=== PATIENT | female | born 1965 | race Caucasian/White ===

== ENCOUNTER → 2017-03-21 | Outpatient (CLI) | payer OTHER ==
--- NOTE | 2017-03-21 13:11 | DIAGNOSTIC IMAGING REPORT ---
R SHOULDER MIN 2 VIEWS ROUTINE HISTORY: 51 years-old Female M25.511 Right shoulder [id number] acute right shoulder pain status post fall COMPARISON: None available TECHNIQUE: 3 views of the right shoulder FINDINGS: No acute fracture, dislocation or significant degenerative changes. Imaged soft tissues and right lung lei are clear. Remote appearing fracture involves the posterior lateral aspect of the right sixth rib. IMPRESSION: No acute bony abnormality. The above report was generated using voice recognition software. It may contain grammatical, syntax or spelling errors. Electronically signed by: Dimitris Toth M.D. 03/21/2017 1:10 PM Dictated Date/Time: 03/21/2017 1:09 PM
== END | disposition home or self-care (01) ==
LOC: C.RAD1850 12:52
PROVIDERS: ATTEND Nurse Practitioner
DX: M25.511 Pain in right shoulder (principal)

== ENCOUNTER → 2018-01-07 | Outpatient (CLI) | payer OTHER ==
[2018-01-07 18:11] LABS: BLOOD UREA NITROGEN 8 mg/dl (7-18); CALCIUM 8.2 mg/dl (8.5-10.1); CARBON DIOXIDE 29 mmol/L (21-32); CREATININE 0.65 mg/dl (0.60-1.20); GLUCOSE 89 mg/dl (70-99); POTASSIUM 2.5 mmol/L (3.5-5.1); SODIUM 140 mmol/L (136-145)
== END | disposition home or self-care (01) ==
LOC: C.LABBFT 11:42
PROVIDERS: ATTEND Physician Assistant Medical
DX: E87.6 Hypokalemia (principal)

== ENCOUNTER 2020-08-02 15:44 | Inpatient (IN) ==
[2020-08-02 16:21] LABS: Basophils # (auto) 0.06 K/uL (0-0.2); Basophils % (auto) 0.4 %; Eosinophils # (auto) 0.08 K/uL (0-0.5); Eosinophils % (auto) 0.5 %; Hematocrit (blood only) 46.4 % (37-47); Hemoglobin 16.6 g/dL (12.0-16.0); Immature Granulocytes # (auto) 0.06 K/uL (0.00-0.02); Immature Granulocytes % (auto) 0.4 %; Lymphocytes # (auto) 2.34 K/uL (1.2-3.4); Lymphocytes % (auto) 15.8 %; Mean Corpuscular Hemoglobin 36.1 pg (25-34); Mean Corpuscular Hgb Conc 35.8 g/dL (32-36); Mean Corpuscular Volume 100.9 fL (80-100); Mean Platelet Volume 9.5 fL (7.4-10.4); Monocytes % (auto) 11.5 %; Neutrophils # (auto) 10.59 K/uL (1.4-6.5); Neutrophils % (auto) 71.4 %; Platelet Count 201 K/uL (130-400); RDW Coefficient of Variation 15.1 % (11.5-14.5); White Blood Count 14.83 K/uL (4.8-10.8)
[2020-08-02 16:34] LABS: Appearance Urine Cloudy (Clear); Bacteria Urine Automated 1+ (Negative); Blood Urine Trace (Negative); Color Urine Orange; Epithelial Cell Urine Auto >30 /lpf (0-5); Glucose Urine UA Negative (Negative); Ketones Urine Negative (Negative); Leukocyte Esterase Urine 1+ (Negative); Nitrite Urine Positive (Negative); Protein Urine Trace (Negative); Specific Gravity Urine 1.017 (1.000-1.030); Urobilinogen Urine Positive (Negative)
[2020-08-02 16:35] LABS: Bilirubin Urine 3+ (Negative)
[2020-08-02 16:55] LABS: Albumin Globulin Ratio 0.6 (0.9-2); Albumin Level 2.5 gm/dl (3.4-5.0); BUN Creatinine Ratio 4.2 (10-20); Bilirubin,Total 7.1 mg/dl (0.2-1); Calcium 8.5 mg/dl (8.5-10.1); Creatinine Clr Calc Pharmacy 65.4 ml/min; Est GFR (Non-African American) 77.7; Globulin 3.9 gm/dl (2.5-4.0); Potassium 2.1 mmol/L (3.5-5.1); Total Protein 6.4 gm/dl (6.4-8.2)
[2020-08-02 16:59] LABS: C Reactive Protein 1.48 mg/dl (0-0.29)
[2020-08-02] MEDS ORDERED: OPTIRAY 320 100ml IV ONE (17:24)
--- NOTE | 2020-08-02 17:36 | Emergency Department Note ---
History of Present Illness General Chief complaint: Abdominal Pain Stated complaint: ABD PAIN Time Seen by Provider: 08/02/20 16:20 History of Present Illness Maximum Pain Intensity: 7 54-year-old female who presents to the emergency department with complaint of generalized lower abdominal pain, swelling and nausea that has been ongoing for the past 4 years, worse within the past 2 weeks. Patient does report occasional reflux, otherwise denies any other chest pain, shortness of breath or pain radiating into the back. She has not noticed any urinary symptoms, dark or bloody stools. The patient does admit to a remote history of alcohol abuse. Upon further questioning, the patient reports that she last had alcohol about 5 days ago. She denies any prior abdominal surgeries. The patient rates her discomfort a 7 out of 10. Home Medications Medication Instructions Recorded Confirmed Type albuterol sulfate 90 mcg/actuation 2 puff INHALATION Q4 PRN 12/22/18 08/02/20 History aerosol inhaler omeprazole 20 mg tablet,delayed 20 mg PO QAM 12/22/18 08/02/20 History release triamcinolone acetonide 0.5 % See Rx Instructions TOP .COMPLEX 12/22/18 08/02/20 History topical cream PRN B-complex with vitamin C 1 cap PO DAILY #30 cap 01/16/19 08/02/20 Rx cholecalciferol (vitamin D3) 50 2,000 units PO DAILY 04/07/19 08/02/20 History mcg (2,000 unit) capsule riboflavin (vitamin B2) 50 mg 50 mg PO DAILY 04/07/19 08/02/20 History tablet doxycycline hyclate 100 mg tablet 100 mg PO BID #20 tab 05/28/19 08/02/20 Rx lorazepam 0.5 mg tablet 0.5 mg PO DAILY PRN #30 tab 02/26/20 08/02/20 Rx duloxetine 20 mg capsule,delayed 40 mg PO DAILY #60 cap 03/02/20 08/02/20 Rx release folic acid 1 mg PO DAILY 08/02/20 08/02/20 History gabapentin 300 mg PO TID 08/02/20 08/02/20 History potassium chloride 20 meq PO DAILY 08/02/20 08/02/20 History Allergies Allergy/AdvReac Type Severity Reaction Status Date / Time No Known Allergies Allergy Verified 08/02/20 17:24 Past Med/Surg History Medical History Anxiety Depression GERD (gastroesophageal reflux disease) Hypokalemia Mood swings Neuropathy Riboflavin (vitamin B2) deficiency Thiamine deficiency Tobacco abuse Vitamin D deficiency Surgical History History of tooth extraction wisdom teeth Family History Mother Family history of diabetes mellitus Thyroid disease Hypertension Cardiac disorder Father Myocardial infarction Stroke Grandmother Lung cancer Social History Smoking Status: Current every day smoker Tobacco Type: Cigarettes Age Started Using Tobacco: 27; packs per day: 0.5; Cigarettes Per Day: <10; Second Hand Exposure: Yes (father smoked); Hx Alcohol Use: Yes Alcohol type: beer, wine and hard liquor Hx Substance Use: No Preferred Language: Greek Communication Ability: Effective Supervisor [employer] Required: No Beliefs That Will Affect Care: None Current Living Situation: Spouse Feels Safe at Home: Yes Assistive Devices: Denture - Upper, Denture - Lower and Glasses Review of Systems 10 system review was performed and was negative except for pertinent positives and negatives as indicated in history of present illness Physical Exam Vital Signs Vital Signs - 24 hr 08/02/20 15:53 08/02/20 17:37 08/02/20 19:25 Temperature 37.2 C Temperature Source Temporal Artery Scan Pulse Rate 71 Pulse Rate [Finger] 70 73 Pulse Rhythm [Finger] Regular Regular Pulse Strength [Finger] Normal Normal Respiratory Rate 18 19 18 Respiratory Effort / Characteristics Non-Labored Spontaneous Respiratory Depth Normal Normal Respiratory Pattern Regular Blood Pressure 133/81 Blood Pressure [Right Arm] 110/62 135/81 Blood Pressure Mean 98 Blood Pressure Mean [Right Arm] 78 99 Pulse Oximetry 95 95 98 Oxygen Delivery Method Room Air Room Air Room Air Sepsis Recent Fever Within 48 Hours No Sepsis New/Unexplained Change in Mental Status No Sepsis Action Taken by Nursing No Action Required CONSTITUTIONAL: Healthy and well nourished. Patient does not appear in any acute distress on exam. HEENT: Normocephalic, atraumatic. Pupils equal, round and reactive. No scleral icterus or conjunctival injection/pallor. NECK: Full active range of motion without discomfort. LYMPHATICS: No cervical chain adenopathy. RESPIRATORY: Clear to auscultation bilaterally with no wheezing, crackles, rhonchi or stridor. CARDIOVASCULAR: Regular rate and rhythm with no murmurs, rubs or gallops. GASTROINTESTINAL: Bowel sounds present in all quadrants. Patient has generalized abdominal distention with a fluid wave/ballottement. No obvious hepatosplenomegaly on exam. Negative McBurney's point tenderness. No left lower quadrant tenderness to palpation. Negative CVA tenderness. MUSCULOSKELETAL: Full range of motion of all joints without discomfort. INTEGUMENTARY: No rash or other significant dermatologic conditions noted. HEMATOLOGIC: No ecchymosis or petechiae. PSYCHIATRIC: Positive affect. NEUROLOGIC: No focal neurologic deficits noted. Course Course Patient history and physical exam were performed. Nurses notes were reviewed. Vital signs were reviewed and were normal. The patient refused any analgesics on initial exam. IV access was established, and labs were drawn and reviewed, showing profound hypokalemia with a potassium of 2.1; it is noted that the patient has had prior hypokalemia, and is currently on potassium supplementation. Patient also has mild hyponatremia and elevated glucose of 140. Patient has elevated LFTs, total bilirubin and alkaline phosphatase, which do appear to be new except for history of elevated alkaline phosphatase. Urinalysis shows hematuria, nitrites, bilirubin, urobilinogen, leukocyte esterase and bacteria; urine sample was not clean-catch. Coagulation studies, magnesium and phosphorus are relatively normal. CT with IV contrast of the abdomen and pelvis shows a moderate amount of ascites as well as moderate body wall edema and trace pleural effusions. Radiologist also question subtle nodularity along the liver contour which could represent an early cirrhosis, which is in agreement with laboratory studies. Findings were discussed with the patient, as well as Dr. Aguilar, ED attending physician, who agrees with hospitalist consultation for admission. Patient was in agreement to admission as well. The case was then further discussed with Dr. Oakes, [facility] Hospitalist. Please see the hospitalist service dictations for further treatment and final disposition. I did place an order for potassium chloride 40 mEq orally, as well as a K rider 10 mEq while in the emergency department. Administered Medications Gabapentin (Gabapentin 300 Mg Cap) 300 mg PO TID DEYA Stop: 09/01/20 20:59 Last Admin: 08/02/20 21:42 Dose: 300 mg Documented by: [id number] Miscellaneous (Remove Nicoderm Patch) 1 ea N/A DAILY@[id number] [facility] Stop: 09/02/20 08:58 Last Admin: 08/02/20 21:56 Dose: Not Given Documented by: [id number] Nicotine (Nicotine 21 Mg/24 Hr Tdsy) 21 mg TD QAM [facility] Stop: 09/01/20 20:50 Last Admin: 08/02/20 21:42 Dose: Not Given Documented by: [id number] Discontinued Medications Potassium Chloride (K Brayan / Wtr) 10 meq in 100 mls @ 100 mls/hr IV ONE ONE Stop: 08/02/20 19:06 Last Infusion: 08/02/20 19:26 Dose: 0 mls/hr Documented by: [id number] Admin: 08/02/20 18:19 Dose: 100 mls/hr Documented by: [id number] Ibuprofen (Ibuprofen 200 Mg Tab) 400 mg PO NOW STA Stop: 08/02/20 22:15 Last Admin: 08/02/20 22:38 Dose: 400 mg Documented by: [id number] Ioversol (Ioversol 100ml) 94 ml IV ONCE ONE Stop: 08/02/20 17:25 Last Admin: 08/02/20 17:24 Dose: 94 ml Documented by: [id number] Potassium Chloride (Potassium Chloride Crtab 20 Meq Tabcr) 40 meq PO NOW STA Stop: 08/02/20 18:08 Last Admin: 08/02/20 18:19 Dose: 40 meq Documented by: [id number] Spironolactone (Spironolactone 25 Mg Tab) 25 mg PO NOW STA Stop: 08/02/20 19:55 Last Admin: 08/02/20 20:30 Dose: 25 mg Documented by: [id number] Medical Decision Making Medical Records Attestation: I reviewed the patient's medical records. Home Medications Current Medication List: was personally reviewed by me Laboratory Data Attestation: I reviewed the patient's lab results. Result diagrams: 08/02/20 16:07 08/02/20 16:07 Lab Results 08/02/20 08/02/20 08/02/20 Range/Units 16:07 16:07 16:07 WBC 14.83 H (4.8-10.8) K/uL RBC 4.60 (4.2-5.4) M/uL Hgb 16.6 H (12.0-16.0) g/dL Hct 46.4 (37-47) % MCV 100.9 H (80-100) fL MCH 36.1 H (25-34) pg MCHC 35.8 (32-36) g/dL RDW Std Deviation 55.0 H (36.4-46.3) fL RDW Coeff of Efra 15.1 H (11.5-14.5) % Plt Count 201 (130-400) K/uL MPV 9.5 (7.4-10.4) fL Immature Gran % (Auto) 0.4 % Neut % (Auto) 71.4 % Lymph % (Auto) 15.8 % [place] % (Auto) 11.5 % Eos % (Auto) 0.5 % Baso % (Auto) 0.4 % Neut # (Auto) 10.59 H (1.4-6.5) K/uL Lymph # (Auto) 2.34 (1.2-3.4) K/uL [place] # (Auto) 1.70 H (0.11-0.59) K/uL Eos # (Auto) 0.08 (0-0.5) K/uL Baso # (Auto) 0.06 (0-0.2) K/uL Immature Gran # (Auto) 0.06 H (0.00-0.02) K/uL PT (9.0-12.0) Seconds INR (0.9-1.1) APTT (21.0-31.0) Seconds PTT Ratio Sodium 135 L (136-145) mmol/L Potassium 2.1 L* (3.5-5.1) mmol/L Chloride 95 L (98-107) mmol/L Carbon Dioxide 31 (21-32) mmol/L Anion Gap 8.0 (3-11) BUN 4 L (7-18) mg/dl Creatinine 0.86 (0.6-1.2) mg/dl Est Cr Clr Drug Dosing 65.4 ml/min Est GFR ( Amer) 90.0 Est GFR (Non-Af Amer) 77.7 BUN/Creatinine Ratio 4.2 L (10-20) Glucose 140 H (70-99) mg/dl Calcium 8.5 (8.5-10.1) mg/dl Phosphorus 2.9 (2.5-4.9) mg/dl Magnesium 1.9 (1.8-2.4) mg/dl Total Bilirubin 7.1 H (0.2-1) mg/dl AST 355 H (15-37) U/L ALT 1071 H (12-78) U/L Alkaline Phosphatase 330 H (45-117) U/L C-Reactive Protein 1.48 H (0-0.29) mg/dl Total Protein 6.4 (6.4-8.2) gm/dl Albumin 2.5 L (3.4-5.0) gm/dl Globulin 3.9 (2.5-4.0) gm/dl Albumin/Globulin Ratio 0.6 L (0.9-2) Lipase 179 (73-393) U/L Urine Color [place] Urine Appearance Cloudy A (Clear) Urine pH 6.0 (4.5-7.5) Ur Specific [place] 1.017 (1.000-1.030) Urine Protein Trace H (Negative) Urine Glucose (UA) Negative (Negative) Urine Ketones Negative (Negative) Urine Blood Trace H (Negative) Urine Nitrite Positive A (Negative) Urine Bilirubin 3+ H (Negative) Urine Urobilinogen Positive H (Negative) Ur Leukocyte Esterase 1+ H (Negative) Urine WBC (Auto) 10-30 H (0-5) /hpf Urine RBC (Auto) 0-4 (0-4) /hpf U Hyaline Cast (Auto) 1-5 (0-5) /lpf U Epithel Cells (Auto) >30 H (0-5) /lpf Urine Bacteria (Auto) 1+ H (Negative) Urine Yeast Not Reportable Acetaminophen (10-30) ug/ml COVID-19 Eval Order Hep Bs Antigen (Neg) Hepatitis C Antibody (Neg) SARS-CoV-2, RNA, NAAT (NEGATIVE) 08/02/20 08/02/20 08/02/20 Range/Units 16:13 18:20 18:20 WBC (4.8-10.8) K/uL RBC (4.2-5.4) M/uL Hgb (12.0-16.0) g/dL Hct (37-47) % MCV (80-100) fL MCH (25-34) pg MCHC (32-36) g/dL RDW Std Deviation (36.4-46.3) fL RDW Coeff of Efra (11.5-14.5) % Plt Count (130-400) K/uL MPV (7.4-10.4) fL Immature Gran % (Auto) % Neut % (Auto) % Lymph % (Auto) % [place] % (Auto) % Eos % (Auto) % Baso % (Auto) % Neut # (Auto) (1.4-6.5) K/uL Lymph # (Auto) (1.2-3.4) K/uL [place] # (Auto) (0.11-0.59) K/uL Eos # (Auto) (0-0.5) K/uL Baso # (Auto) (0-0.2) K/uL Immature Gran # (Auto) (0.00-0.02) K/uL PT 12.0 (9.0-12.0) Seconds INR 1.2 H (0.9-1.1) APTT 26.0 (21.0-31.0) Seconds PTT Ratio 1.0 Sodium (136-145) mmol/L Potassium (3.5-5.1) mmol/L Chloride (98-107) mmol/L Carbon Dioxide (21-32) mmol/L Anion Gap (3-11) BUN (7-18) mg/dl Creatinine (0.6-1.2) mg/dl Est Cr Clr Drug Dosing ml/min Est GFR ( Amer) Est GFR (Non-Af Amer) BUN/Creatinine Ratio (10-20) Glucose (70-99) mg/dl Calcium (8.5-10.1) mg/dl Phosphorus (2.5-4.9) mg/dl Magnesium (1.8-2.4) mg/dl Total Bilirubin (0.2-1) mg/dl AST (15-37) U/L ALT (12-78) U/L Alkaline Phosphatase (45-117) U/L C-Reactive Protein (0-0.29) mg/dl Total Protein (6.4-8.2) gm/dl Albumin (3.4-5.0) gm/dl Globulin (2.5-4.0) gm/dl Albumin/Globulin Ratio (0.9-2) Lipase (73-393) U/L Urine Color Urine Appearance (Clear) Urine pH (4.5-7.5) Ur Specific [place] (1.000-1.030) Urine Protein (Negative) Urine Glucose (UA) (Negative) Urine Ketones (Negative) Urine Blood (Negative) Urine Nitrite (Negative) Urine Bilirubin (Negative) Urine Urobilinogen (Negative) Ur Leukocyte Esterase (Negative) Urine WBC (Auto) (0-5) /hpf Urine RBC (Auto) (0-4) /hpf U Hyaline Cast (Auto) (0-5) /lpf U Epithel Cells (Auto) (0-5) /lpf Urine Bacteria (Auto) (Negative) Urine Yeast Acetaminophen (10-30) ug/ml COVID-19 Eval [email or web address] Bs Antigen (Neg) Hepatitis C Antibody (Neg) SARS-CoV-2, RNA, NAAT NEGATIVE (NEGATIVE) 08/02/20 08/02/20 Range/Units 19:07 19:07 WBC (4.8-10.8) K/uL RBC (4.2-5.4) M/uL Hgb (12.0-16.0) g/dL Hct (37-47) % MCV (80-100) fL MCH (25-34) pg MCHC (32-36) g/dL RDW Std Deviation (36.4-46.3) fL RDW Coeff of Efra (11.5-14.5) % Plt Count (130-400) K/uL MPV (7.4-10.4) fL Immature Gran % (Auto) % Neut % (Auto) % Lymph % (Auto) % [place] % (Auto) % Eos % (Auto) % Baso % (Auto) % Neut # (Auto) (1.4-6.5) K/uL Lymph # (Auto) (1.2-3.4) K/uL [place] # (Auto) (0.11-0.59) K/uL Eos # (Auto) (0-0.5) K/uL Baso # (Auto) (0-0.2) K/uL Immature Gran # (Auto) (0.00-0.02) K/uL PT (9.0-12.0) Seconds INR (0.9-1.1) APTT (21.0-31.0) Seconds PTT Ratio Sodium (136-145) mmol/L Potassium (3.5-5.1) mmol/L Chloride (98-107) mmol/L Carbon Dioxide (21-32) mmol/L Anion Gap (3-11) BUN (7-18) mg/dl Creatinine (0.6-1.2) mg/dl Est Cr Clr Drug Dosing ml/min Est GFR ( Amer) Est GFR (Non-Af Amer) BUN/Creatinine Ratio (10-20) Glucose (70-99) mg/dl Calcium (8.5-10.1) mg/dl Phosphorus (2.5-4.9) mg/dl Magnesium (1.8-2.4) mg/dl Total Bilirubin (0.2-1) mg/dl AST (15-37) U/L ALT (12-78) U/L Alkaline Phosphatase (45-117) U/L C-Reactive Protein (0-0.29) mg/dl Total Protein (6.4-8.2) gm/dl Albumin (3.4-5.0) gm/dl Globulin (2.5-4.0) gm/dl Albumin/Globulin Ratio (0.9-2) Lipase (73-393) U/L Urine Color Urine Appearance (Clear) Urine pH (4.5-7.5) Ur Specific [place] (1.000-1.030) Urine Protein (Negative) Urine Glucose (UA) (Negative) Urine Ketones (Negative) Urine Blood (Negative) Urine Nitrite (Negative) Urine Bilirubin (Negative) Urine Urobilinogen (Negative) Ur Leukocyte Esterase (Negative) Urine WBC (Auto) (0-5) /hpf Urine RBC (Auto) (0-4) /hpf U Hyaline Cast (Auto) (0-5) /lpf U Epithel Cells (Auto) (0-5) /lpf Urine Bacteria (Auto) (Negative) Urine Yeast Acetaminophen (10-30) ug/ml COVID-19 Eval Order Hep Bs Antigen Neg (Neg) Hepatitis C Antibody Neg (Neg) SARS-CoV-2, RNA, NAAT (NEGATIVE) Imaging Data Attestation: I personally reviewed and interpreted this imaging study as follows: My Impression: My interpretation of a CT with IV contrast of the abdomen and pelvis shows a moderate ascites and possible early cirrhosis. Radiologist report was also reviewed. Radiologist's Impression: ABDOMEN AND PELVIS CT WITH IV CONTRAST CT DOSE: 350.21 mGycm HISTORY: Lower abd pain, swelling TECHNIQUE: Multiaxial CT images of the abdomen and pelvis were performed following the use of intravenous contrast. A dose lowering technique was utilized adhering to the principles of ALARA. COMPARISON STUDY: Abdomen and pelvis CT 07/30/2018. FINDINGS: There are trace bilateral pleural effusions. Mild dependent changes seen within the lung bases. No pneumoperitoneum. No pneumatosis. There are healing/healed left lateral rib fractures. Moderate diffuse body wall edema. There is a 2.5 cm diverticulum at the second portion of the duodenum. No hepatic or splenic masses. The liver and spleen are normal in size. The gallbladder is unremarkable. The pancreas and adrenal glands are within normal limits. There is a punctate nonobstructing stone within the lower pole the left kidney. There is a 9 mm hypodense lesion within the lower pole the right kidney. This is technically too small to characterize but remain stable and favors a cyst. The main portal vein is patent. Normal caliber abdominal aorta. No retroperitoneal lymphadenopathy. Small to moderate amount of ascites. Mild bladder wall thickening which could be due to underdistention. The uterus and ovaries are within normal limits. There is questionable mild bowel wall thickening involving the colon and majority of the small bowel. There is associated submucosal fat deposition within the majority of the colon. Normal appendix. No evidence for bowel obstruction. Question of subtle nodularity along the liver contour which could represent an early cirrhosis. A few mildly enlarged periportal lymph nodes which are likely reactive. IMPRESSION: 1. Interval development of a small to moderate amount of ascites as well as moderate body wall edema and trace pleural effusions. Question of subtle nodularity along the liver contour which could represent an early cirrhosis. Recommend correlation with LFTs. 2. Mild diffuse thickening of the majority of the small bowel loops and colon. This could be due to the patient's diffuse edematous state. A low-grade enterocolitis could also have a similar appearance in the appropriate clinical setting.. 3. Left-sided nephrolithiasis. No hydronephrosis. Blood Pressure Blood Pressure Findings: Normal blood pressure MDM Narrative Patient presents to the emergency department with complaint of generalized abdominal pain and distention now for several months, worsening over the past few weeks. Her work-up today is consistent with alcoholic hepatitis with ascites, probable cirrhosis. The patient is currently afebrile and does not have any significant leukocytosis to suggest infection. CT imaging does not show any obvious gallstones or other abnormal gallbladder findings. Urinalysis is suggestive of an infection, however I will defer further antibiotic treatment to the hospitalist service. Impression & Plan Alcoholic hepatitis with ascites, Hypokalemia Discharge Plan Visit Data Chief Complaint: Abdominal Pain Stated Complaint: ABD PAIN ED Provider: Chris Aguilar ED Midlevel Provider: Norris Carranza Discharge Problem: Alcoholic hepatitis with ascites, Hypokalemia Patient Disposition: Admitted As Inpatient Discharge Instructions Interventions: ED Discharge Assessment Last Done: 08/02/20 20:19
[2020-08-02 17:37] LABS: RBC Urine Automated 0-4 /hpf (0-4)
--- NOTE | 2020-08-02 17:40 | CT Scan Report ---
ABDOMEN AND PELVIS CT WITH IV CONTRAST CT DOSE: 350.21 mGycm HISTORY: Lower abd pain, swelling TECHNIQUE: Multiaxial CT images of the abdomen and pelvis were performed following the use of intrave nous contrast. A dose lowering technique was utilized adhering to the principles of ALARA. COMPARISON STUDY: Abdomen and pelvis CT 07/30/2018. FINDINGS: There are trace bilateral pleural effusions. Mild dependent changes seen within the lung ba ses. No pneumoperitoneum. No pneumatosis. There are healing/healed left lateral rib fractures. Modera te diffuse body wall edema. There is a 2.5 cm diverticulum at the second portion of the duodenum. No hepatic or splenic masses. The liver and spleen are normal in size. The gallbladder is unremarkable. The pancreas and adrenal glands are within normal limits. There is a punctate nonobstructing stone wi thin the lower pole the left kidney. There is a 9 mm hypodense lesion within the lower pole the right kidney. This is technically too small to characterize but remain stable and favors a cyst. The main portal vein is patent. Normal caliber abdominal aorta. No retroperitoneal lymphadenopathy. Small to m oderate amount of ascites. Mild bladder wall thickening which could be due to underdistention. The ut erus and ovaries are within normal limits. There is questionable mild bowel wall thickening involving the colon and majority of the small bowel. There is associated submucosal fat deposition within the majority of the colon. Normal appendix. No evidence for bowel obstruction. Question of subtle nodular ity along the liver contour which could represent an early cirrhosis. A few mildly enlarged periporta l lymph nodes which are likely reactive. IMPRESSION: 1. Interval development of a small to moderate amount of ascites as well as moderate body wall edema and trace pleural effusions. Question of subtle nodularity along the liver contour which could repres ent an early cirrhosis. Recommend correlation with LFTs. 2. Mild diffuse thickening of the majority of the small bowel loops and colon. This could be due to t he patient's diffuse edematous state. A low-grade enterocolitis could also have a similar appearance in the appropriate clinical setting.. 3. Left-sided nephrolithiasis. No hydronephrosis. ACT 112: Negative or not required by law. Electronically signed by: Tab Dallas M.D. 08/02/2020 5:39 PM
[2020-08-02] MEDS ORDERED: POTASSIUM CHLORIDE CRTAB 20 MEQ TABCR PO STA (18:07)
[2020-08-02] MEDS ORDERED: POTASSIUM CHLORIDE / WTR 10 MEQ/100 ML PLCT IV ONE (18:07)
[2020-08-02 18:29] LABS: INR 1.2 (0.9-1.1)
[2020-08-02 18:40] LABS: Magnesium 1.9 mg/dl (1.8-2.4); Phosphorus 2.9 mg/dl (2.5-4.9)
--- NOTE | 2020-08-02 18:53 | History & Physical Report ---
Date of Service August 02, 2020 Assessment & Plan (1) Alcoholic hepatitis with ascites: Maddrey's discriminant function 20.9 - no need for prednisolone [place] alcoholic hepatitis score 7 - low risk MELD Score 18 - 6.0% 3-month mortality Spironolactone 25 mg p.o. every morning Consult gastroenterology (2) Hypokalemia: Suspect secondary to alcohol intake. Potassium chloride 40 meq PO + 10 meq IV given in ER. Continue diuresis with spironolactone 25 mg p.o. every morning. Repeat BMP with a.m. labs (3) Tobacco abuse: Nicotine 21 mg topical every morning (4) Neuropathy: Suspected secondary to alcohol and vitamin deficiencies. Continue duloxetine 40 mg p.o. daily and gabapentin 300 mg p.o. 3 times daily (5) Acid reflux: Switch omeprazole to pantoprazole as per hospital formulary (6) DVT prophylaxis: SCDs Admission and Anticipated Discharge Date Admission Date: August 02, 2019 History of Present Illness Chief Complaint: Abdominal pain Primary Care Provider: JELENA Lucas Morenita Pascual is a 54-year-old female who presents to the ER with lower abdominal pain, distension and nausea. She reports intermittent bloating, nausea and vomiting for many months however more persistent over the past 5 days with new onset suprapubic pain. Pain severity 7/10, no radiation, aching. She denies any melena, bright blood in stool. No recent change in bowel habits however she notes intermittent diarrhea and constipation for many years with a prior diagnosis of irritable bowel syndrome. The patient reports intermittent alcohol use with binging episodes related to increased stress. She reports last having alcohol 5 days ago. During her binges she admits to drinking a few beers and shots (of fireball). She denies any alcohol withdrawal symptoms. She reports her is going to remove all the alcohol and into her house In the ER labs concerning for hypokalemia and elevated LFTs. CT concerning for small to moderate amount of ascites. Patient was given potassium supplementation and referred to medicine for hyperkalemia and abdominal ascites. Allergies Allergy/AdvReac Type Severity Reaction Status Date / Time No Known Allergies Allergy Verified 08/02/20 17:24 Home Medications Medication Instructions Recorded Confirmed Type albuterol sulfate 90 mcg/actuation 2 puff INHALATION Q4 PRN 12/22/18 08/02/20 History aerosol inhaler omeprazole 20 mg tablet,delayed 20 mg PO QAM 12/22/18 08/02/20 History release triamcinolone acetonide 0.5 % See Rx Instructions TOP .COMPLEX 12/22/18 08/02/20 History topical cream PRN B-complex with vitamin C 1 cap PO DAILY #30 cap 01/16/19 08/02/20 Rx cholecalciferol (vitamin D3) 50 2,000 units PO DAILY 04/07/19 08/02/20 History mcg (2,000 unit) capsule riboflavin (vitamin B2) 50 mg 50 mg PO DAILY 04/07/19 08/02/20 History tablet doxycycline hyclate 100 mg tablet 100 mg PO BID #20 tab 05/28/19 08/02/20 Rx lorazepam 0.5 mg tablet 0.5 mg PO DAILY PRN #30 tab 02/26/20 08/02/20 Rx duloxetine 20 mg capsule,delayed 40 mg PO DAILY #60 cap 03/02/20 08/02/20 Rx release folic acid 1 mg PO DAILY 08/02/20 08/02/20 History gabapentin 300 mg PO TID 08/02/20 08/02/20 History potassium chloride 20 meq PO DAILY 08/02/20 08/02/20 History Past Med/Surg History Medical History Anxiety Depression GERD (gastroesophageal reflux disease) Hypokalemia Mood swings Neuropathy Riboflavin (vitamin B2) deficiency Thiamine deficiency Tobacco abuse Vitamin D deficiency Surgical History History of tooth extraction wisdom teeth Family History Mother Family history of diabetes mellitus Thyroid disease Hypertension Cardiac disorder Father Myocardial infarction Stroke Grandmother Lung cancer Social History Smoking Status: Current every day smoker Tobacco Type: Cigarettes Age Started Using Tobacco: 27; packs per day: 0.5; Cigarettes Per Day: <10; Second Hand Exposure: Yes (father smoked); Hx Alcohol Use: Yes Alcohol type: beer, wine and hard liquor Hx Substance Use: No Preferred Language: Uzbek Communication Ability: Effective Cavalry Officer Required: No Beliefs That Will Affect Care: None Current Living Situation: Spouse Feels Safe at Home: Yes Assistive Devices: Denture - Upper, Denture - Lower and Glasses Review of Systems Review of Systems: All systems reviewed & are unremarkable except as noted in HPI & below Constitutional: no fever and no chills Gastrointestinal: as per Subjective / HPI Genitourinary: no dysuria, no difficulty urinating, no urinary frequency, no urinary hesitancy, no urinary urgency, no decreased urination and no hematuria Physical Exam Constitutional: well developed and well nourished; no acute distress Eyes: PERRL, conjunctivae normal, anicteric sclerae ENMT: external ear and nose normal, oropharynx normal Neck: trachea midline Respiratory: normal respiratory effort, lungs clear to auscultation Cardiovascular: Rate/Rhythm: regular rate and regular rhythm Heart Sounds: no murmur Vessels: no JVD Extremities: normal capillary refill and + edema (1+ pretibial bilaterally equal) Gastrointestinal (Abdomen): Inspection/Auscultation: + abdomen distended and normal bowel sounds; no abdominal edema Percussion/Palpation: + abdomen tender (Mild suprapubic) and abdomen soft; no guarding and abdomen not rigid Musculoskeletal: no cyanosis or clubbing, extremities motor strength 5/5 Skin: no rashes, warm and dry Neurologic: moves all extremities and awake; no focal motor deficits and not confused Speech / Cognition: normal speech Motor/Sensory: + sensory defic it (Tingling in toes) Psychiatric: A+Ox3, euthymic affect Genitourinary: no CVA tenderness Results & Data Results & Data ([facility]) Vital Signs (Past 12 Hours) Vital Signs Temp Pulse Pulse Resp BP BP Pulse Ox 08/02/20 17:37 70 19 110/62 95 08/02/20 15:53 37.2 C 71 18 133/81 95 Diagnostic Findings ABDOMEN AND PELVIS CT WITH IV CONTRAST IMPRESSION: 1. Interval development of a small to moderate amount of ascites as well as moderate body wall edema and trace pleural effusions. Question of subtle nodularity along the liver contour which could represent an early cirrhosis. Recommend correlation with LFTs. 2. Mild diffuse thickening of the majority of the small bowel loops and colon. This could be due to the patient's diffuse edematous state. A low-grade enterocolitis could also have a similar appearance in the appropriate clinical setting.. 3. Left-sided nephrolithiasis. No hydronephrosis. Medications Administered ER medications given: Potassium chloride 40 meq p.o. Potassium chloride 10 meq IV ECG Rhythm: normal sinus Findings: + other (T wave flattening in inferior leads) Comparison ECG Date: from (January 08, 2003) Change: the following changes noted (Inferior T wave flattening is new) Code Status & VTE Plan Code Status Full VTE Prophylaxis Plan VTE Prophylaxis will be ordered: Yes Reason for no VTE drug order: Treatment not indicated PG Care Time/CCT Total # of Minutes Spent Total Time Spent with Patient: Total time spent is greater than 50% in coordination of care (as documented) at patient's floor/unit and/or counseling patient: Coding Level of Care Code 08648 Initial Inpt Care Lvl 3 Diagnoses Alcoholic hepatitis with ascites K70.11 Hypokalemia E87.6 Tobacco abuse Z72.0 Neuropathy G62.9 Acid reflux K21.9 DVT prophylaxis Z29.9
[2020-08-02] MEDS ORDERED: SPIRONOLACTONE 25 MG TAB PO STA (19:54)
[2020-08-02 20:21] LABS: Hepatitis B Surf Ag Rflx Conf Neg (Neg)
[2020-08-02 20:49] LABS: Hepatitis C IgG 13Yrs+Old_Rflx Neg (Neg)
[2020-08-02] MEDS ORDERED: LORazepam 0.5 MG TAB PO PRN (20:51)
[2020-08-02] MEDS ORDERED: ALUMINUM/MAGNESIUM SUSP 30 ML UDC PO PRN (20:51)
[2020-08-02] MEDS: NICOTINE 21 MG/24 HR TDSY TD SCH (21:42)
[2020-08-02] MEDS: GABAPENTIN 300 MG CAP PO SCH (21:42)
[2020-08-02] MEDS ORDERED: IBUPROFEN 200 MG TAB PO STA (22:14)
[2020-08-03 06:43] LABS: Basophils # (auto) 0.07 K/uL (0-0.2); Basophils % (auto) 0.6 %; Eosinophils # (auto) 0.33 K/uL (0-0.5); Eosinophils % (auto) 2.8 %; Hematocrit (blood only) 38.7 % (37-47); Hemoglobin 13.9 g/dL (12.0-16.0); Immature Granulocytes # (auto) 0.05 K/uL (0.00-0.02); Immature Granulocytes % (auto) 0.4 %; Lymphocytes # (auto) 2.72 K/uL (1.2-3.4); Mean Corpuscular Hemoglobin 36.2 pg (25-34); Mean Corpuscular Hgb Conc 35.9 g/dL (32-36); Mean Corpuscular Volume 100.8 fL (80-100); Mean Platelet Volume 10.1 fL (7.4-10.4); Monocytes # (auto) 1.56 K/uL (0.11-0.59); Monocytes % (auto) 13.2 %; Neutrophils # (auto) 7.11 K/uL (1.4-6.5); Platelet Count 193 K/uL (130-400); RDW Coefficient of Variation 15.3 % (11.5-14.5); RDW Standard Deviation 55.5 fL (36.4-46.3); Red Blood Count 3.84 M/uL (4.2-5.4); White Blood Count 11.84 K/uL (4.8-10.8)
[2020-08-03 07:23] LABS: Albumin Globulin Ratio 0.6 (0.9-2); Albumin Level 1.8 gm/dl (3.4-5.0); BUN Creatinine Ratio 5.2 (10-20); Bilirubin,Total 4.7 mg/dl (0.2-1); Calcium 7.7 mg/dl (8.5-10.1); Creatinine Clr Calc Pharmacy 99.5 ml/min; Est GFR (African American) 123.5; Est GFR (Non-African American) 106.6; Globulin 2.9 gm/dl (2.5-4.0); Potassium 2.3 mmol/L (3.5-5.1); Total Protein 4.7 gm/dl (6.4-8.2)
[2020-08-03] MEDS: NICOTINE 21 MG/24 HR TDSY TD SCH (07:27)
[2020-08-03] MEDS: VITAMIN B COMPLEX TAB PO SCH (07:30)
[2020-08-03] MEDS: DULoxetine HCL 20 MG CAP PO SCH (07:30)
[2020-08-03] MEDS: GABAPENTIN 300 MG CAP PO SCH ×3 (07:30→20:31)
[2020-08-03] MEDS: SPIRONOLACTONE 25 MG TAB PO SCH (07:30)
[2020-08-03] MEDS: CHOLECALCIFEROL 1,000 UNITS 25 MCG TAB PO SCH (07:30)
[2020-08-03] MEDS: FOLIC ACID 1 MG TAB PO SCH (07:31)
[2020-08-03] MEDS: PANTOprazole 40 MG TAB PO SCH (07:31)
[2020-08-03] MEDS ORDERED: RIBOFLAVIN 50 MG PO SCH (09:00)
[2020-08-03] MEDS ORDERED: POTASSIUM CHLORIDE CRTAB 20 MEQ TABCR PO SCH (09:00)
[2020-08-03] MEDS: POTASSIUM CHLORIDE / WTR 10 MEQ/100 ML PLCT IV SCH ×4 (09:01→12:13)
[2020-08-03] MEDS: POTASSIUM CHLORIDE CRTAB 20 MEQ TABCR PO SCH ×3 (09:01→20:30)
--- NOTE | 2020-08-03 09:28 | Gastrointestinal Consultation ---
Date of Consultation August 03, 2020 Assessment & Plan (1) Alcoholic hepatitis with ascites: DF around 20. No indication for steroids. -Continue diuresis; Patient is currently on Spironolactone. No Lasix initiated at present given K 2.3. Pending improvement with diuresis could consider a paracentesis; Patient is hesitant to consider this at present as she feels her abdomen is improving. -Await remainder of hepatitis serologies -Monitor LFTs -2 gm Na restricted diet -Will need outpatient evaluation for further assessment of early cirrhosis findings & consideration of further autoimmune studies to exclude other etiologies -Recommend alcohol cessation -Monitor for withdrawal, though patient reports her last drink was 5 days ago -Continue vitamin supplementation Supervising Physician Co-Signing Physician Notes I personally evaluated the patient and agree with the findings as documented by Suzanna Mistry, [place] Exam: abd: soft, nt, nd History of Present Illness Reason for Consultation: Hepatitis with Ascites Attending Physician: Chirag Pierce History of Present Illness Patient is a 54 yo female with a PMH of tobacco use, anxiety, seasonal allergies, GERD, & constipation who presents to [facility] with lower abdominal pain, distention, & nausea. Symptoms have reportedly been ongoing over the period of months, but acutely worsened in the past several days. She denies changes in her bowel habits and denies GI bleeding. She does reportedly have a baseline diagnosis of IBS. Reportedly she struggles with intermittent binge drinking to self-medicate for stress. Last drink was 5 days ago. No present signs of withdrawal. She notes her abdomen became very rigid several days ago. She notes improvement in this. She reports frequent urination. The patient underwent a CT scan that indicated a moderate amount of ascites with possible early cirrhosis. There was questioning of bowel wall thickening possibly representative personal service of an enterocolitis vs due to ascites. K is 2.3. WBC 11.84. MCV 100.8. H/H 13.9/38.7. T Bili was 7.1 upon presentation but is now 4.7. AST was 355 and now is 188. ALT was 1071 and is now 674. Alk phos was 330 and now is 230. CRP 1.48. Hepatitis B testing is pending. Hepatitis C negative. Tylenol level pending. Discriminant function is 20.9. Urine bili 3+. Primary team has initiated 25 mg po daily. She takes a PPI for GERD. Allergies Allergy/AdvReac Type Severity Reaction Status Date / Time No Known Allergies Allergy Verified 08/02/20 17:24 Home Medications Medication Instructions Recorded Confirmed Type albuterol sulfate 90 mcg/actuation 2 puff INHALATION Q4 PRN 12/22/18 08/02/20 History aerosol inhaler omeprazole 20 mg tablet,delayed 20 mg PO QAM 12/22/18 08/02/20 History release triamcinolone acetonide 0.5 % See Rx Instructions TOP .COMPLEX 12/22/18 08/02/20 History topical cream PRN B-complex with vitamin C 1 cap PO DAILY #30 cap 01/16/19 08/02/20 Rx cholecalciferol (vitamin D3) 50 2,000 units PO DAILY 04/07/19 08/02/20 History mcg (2,000 unit) capsule riboflavin (vitamin B2) 50 mg 50 mg PO DAILY 04/07/19 08/02/20 History tablet doxycycline hyclate 100 mg tablet 100 mg PO BID #20 tab 05/28/19 08/02/20 Rx lorazepam 0.5 mg tablet 0.5 mg PO DAILY PRN #30 tab 02/26/20 08/02/20 Rx duloxetine 20 mg capsule,delayed 40 mg PO DAILY #60 cap 03/02/20 08/02/20 Rx release folic acid 1 mg PO DAILY 08/02/20 08/02/20 History gabapentin 300 mg PO TID 08/02/20 08/02/20 History potassium chloride 20 meq PO DAILY 08/02/20 08/02/20 History Patient History Medical History Anxiety Depression GERD (gastroesophageal reflux disease) Hypokalemia Mood swings Neuropathy Riboflavin (vitamin B2) deficiency Thiamine deficiency Tobacco abuse Vitamin D deficiency Surgical History History of tooth extraction wisdom teeth Family History Mother Family history of diabetes mellitus Thyroid disease Hypertension Cardiac disorder Father Myocardial infarction Stroke Grandmother Lung cancer Social History Smoking Status: Current every day smoker Tobacco Type: Cigarettes Age Started Using Tobacco: 27; packs per day: 0.5; Cigarettes Per Day: <10; Second Hand Exposure: Yes; Do You Dip or Chew Tobacco: No; Tobacco Cessation Education Requested by Patient: No Hx Alcohol Use: Yes Alcohol type: beer, wine and hard liquor Hx Substance Use: No Preferred Language: Chadian Communication Ability: Effective Salesperson [employer] Supp[employer] Required: No Beliefs That Will Affect Care: None Current Living Situation: Spouse Other Information That Helps Us Care for You: No Feels Safe at Home: Yes Safety Concerns: Feels Safe At This Time Assistive Devices: None Review of Systems Constitutional: no fever and no chills Respiratory: no cough and no dyspnea Cardiovascular: no chest pain Gastrointestinal: + abdominal pain and + nausea Musculoskeletal: no problem reported Psychiatric: + anxiety and + substance abuse Physical Exam Constitutional: well developed Neck: normal visual inspection Respiratory: normal respiratory effort Cardiovascular: Extremities: no edema Gastrointestinal (Abdomen): Percussion/Palpation: + ascites; abdomen nontender Musculoskeletal: Head/Neck/Chest: normocephalic Psychiatric: A+Ox3, euthymic affect Results & Data ([facility]) Vital Signs (Past 12 Hours) Vital Signs Temp Pulse Resp BP Pulse Ox 08/03/20 07:47 36.8 C 70 16 109/67 90 08/02/20 23:13 36.7 C 77 15 93/55 L 93 PG Care Time/CCT Total # of Minutes Spent Total Time Spent with Patient: Total time spent is greater than 50% in coordination of care (as documented) at patient's floor/unit and/or counseling p atient: Coding Level of Care Code 57526 Inpt Consult Level 4 Diagnoses Alcoholic hepatitis with ascites K70.11
[2020-08-03 19:32] LABS: Potassium 3.5 mmol/L (3.5-5.1)
[2020-08-03 19:42] LABS: Magnesium 1.9 mg/dl (1.8-2.4)
--- NOTE | 2020-08-03 22:35 | Hospitalist Progress Note ---
Date of Service August 03, 2020 Assessment & Plan (1) Alcoholic hepatitis with ascites: Maddrey's discriminant function 20.9 - no need for prednisolone [place] alcoholic hepatitis score 7 - low risk MELD Score 18 - 6.0% 3-month mortality Spironolactone 25 mg p.o. every morning Consult gastroenterology. Tolerating spironolactone (2) Hypokalemia: Suspect secondary to alcohol intake. Potassium chloride 40 meq PO + 10 meq IV given in ER. Continue diuresis with spironolactone 25 mg p.o. every morning. replenished potassium (3) Tobacco abuse: Nicotine 21 mg topical every morning (4) Neuropathy: Suspected secondary to alcohol and vitamin deficiencies. Continue duloxetine 40 mg p.o. daily and gabapentin 300 mg p.o. 3 times daily (5) Acid reflux: Switch omeprazole to pantoprazole as per hospital formulary (6) DVT prophylaxis: SCDs Admission and Anticipated Discharge Date Admission Date: August 02, 2020 Review of Systems Review of Systems: All systems reviewed & are unremarkable except as noted in HPI & below Physical Exam Physical Exam: Constitutional: well developed and well nourished; no acute distress Eyes: PERRL, conjunctivae normal, anicteric sclerae ENMT: external ear and nose normal, oropharynx normal Neck: trachea midline Respiratory: normal respiratory effort, lungs clear to auscultation Cardiovascular: Rate/Rhythm: regular rate and regular rhythm Heart Sounds: no murmur Vessels: no JVD Extremities: normal capillary refill and + edema (1+ pretibial bilaterally equal) Gastrointestinal (Abdomen): Inspection/Auscultation: + abdomen distended and normal bowel sounds; no abdominal edema Percussion/Palpation: + abdomen nontender and abdomen soft; no guarding and abdomen not rigid Musculoskeletal: no cyanosis or clubbing, extremities motor strength 5/5 Skin: no rashes, warm and dry Neurologic: moves all extremities and awake; no focal motor deficits and not confused Speech / Cognition: normal speech Motor/Sensory: + sensory deficit (Tingling in toes) Psychiatric: A+Ox3, euthymic affect Genitourinary: no CVA tenderness Results & Data Results & Data ([facility]) Vital Signs (Past 12 Hours) Vital Signs Temp Pulse Resp BP Pulse Ox 08/03/20 15:45 36.7 C 84 16 112/71 92 PG Care Time/CCT Total # of Minutes Spent Total Time Spent with Patient: Total time spent is greater than 50% in coordination of care (as documented) at patient's floor/unit and/or counseling patient: Coding Level of Care Code 48198 Subseq Hosp Care Lvl 3 Diagnoses Alcoholic hepatitis with ascites K70.11 Hypokalemia E87.6 Tobacco abuse Z72.0 Neuropathy G62.9 Acid reflux K21.9 DVT prophylaxis Z29.9 Time Spent (min) 35
--- NOTE | 2020-08-04 05:50 | Electrocardiogram Report ---
Test Reason : Blood Pressure : / mmHG Vent. Rate : 065 BPM Atrial Rate : 065 BPM P-R Int : 130 ms QRS Dur : 086 ms QT Int : 444 ms P-R-T Axes : 030 070 -14 degrees QTc Int : 461 ms Normal sinus rhythm Low voltage QRS Possible Septal infarct Abnormal ECG When compared with ECG of 08-JAN-2003 13:09, QRS voltage has decreased T wave inversion now evident in Inferior leads QT has lengthened Confirmed by Dimas Daniels ([id number]) on 08/04/2020 5:49:52 AM Referred By: REFERRED SELF Confirmed By:Dimas Daniels
[2020-08-04] MEDS: GABAPENTIN 300 MG CAP PO SCH ×3 (09:16→20:52)
[2020-08-04] MEDS: VITAMIN B COMPLEX TAB PO SCH (09:17)
[2020-08-04] MEDS: FOLIC ACID 1 MG TAB PO SCH (09:18)
[2020-08-04] MEDS: CHOLECALCIFEROL 1,000 UNITS 25 MCG TAB PO SCH (09:18)
[2020-08-04] MEDS: DULoxetine HCL 20 MG CAP PO SCH (09:18)
[2020-08-04] MEDS: PANTOprazole 40 MG TAB PO SCH (09:19)
[2020-08-04] MEDS: SPIRONOLACTONE 25 MG TAB PO SCH (09:19)
[2020-08-04] MEDS: NICOTINE 21 MG/24 HR TDSY TD SCH (09:20)
[2020-08-04] MEDS: POTASSIUM CHLORIDE CRTAB 20 MEQ TABCR PO SCH ×3 (09:21→20:52)
--- NOTE | 2020-08-04 10:18 | Gastroenterology Progress Note ---
Date of Service August 04, 2020 Assessment & Plan (1) Alcoholic hepatitis with ascites: DF around 20. No indication for steroids. -Continue diuresis; Patient is currently on Spironolactone. No Lasix initiated due to recent hypokalemia. -Await remainder of hepatitis serologies (pending A and B). Hep C ab neg. -Continue to trend hepatic transaminases. -2 gm Na restricted diet. -Will need outpatient evaluation for further assessment of early cirrhosis findings & consideration of further autoimmune studies to exclude other etiologies. -Recommend alcohol cessation. Recommend consideration of inpt/outpt alcohol treatment programs. -Monitor for withdrawal, though patient reports her last drink was 5 days ago. -Continue vitamin supplementation and supportive care. Admission and Anticipated Discharge Date Admission Date: August 02, 2020 Subjective Patient states she is feeling better. No further nausea. Abdominal pain has improved. Distention stable. Hypokalemia and hyponatremia has been repleted and liver panel is trending down. Review of Systems Gastrointestinal: as per Subjective / HPI Neurologic: no unsteadiness and no syncope Hematologic / Lymphatic: + easy bruising Physical Exam Constitutional: WD/WN, vitals as above Eyes: bilateral scleral icterus Gastrointestinal (Abdomen): Inspection/Auscultation: + abdomen distended and normal bowel sounds Percussion/Palpation: abdomen soft; abdomen nontender Psychiatric: A+Ox3, euthymic affect Results & Data Results & Data ([facility]) Vital Signs (Past 12 Hours) Vital Signs Temp Pulse Resp BP Pulse Ox 08/04/20 07:20 36.7 C 78 18 102/65 92 08/04/20 00:00 36.7 C 80 16 112/65 92 Laboratory Results Abnormal lab results 08/02/20 Range/Units 19:07 Acetaminophen Screen <10 L (10-20) mg/L PG Care Time/CCT Total # of Minutes Spent Total Time Spent with Patient: Total time spent is greater than 50% in coordination of care (as documented) at patient's floor/unit and/or counseling patient: Coding Level of Care Code 48114 Subseq Hosp Care Lvl 3 Diagnoses Alcoholic hepatitis with ascites K70.11
[2020-08-04 15:16] LABS: Hepatitis A Antibody IgM NON-REACTIVE (NON-REACTIVE); Hepatitis B Core Antibody IgM NON-REACTIVE (NON-REACTIVE)
--- NOTE | 2020-08-04 21:13 | Hospitalist Progress Note ---
Date of Service August 04, 2020 Assessment & Plan (1) Alcoholic hepatitis with ascites: Maddrey's discriminant function 20.9 - no need for prednisolone [place] alcoholic hepatitis score 7 - low risk MELD Score 18 - 6.0% 3-month mortality Spironolactone 25 mg p.o. every morning Consult gastroenterology. Tolerating spironolactone. once potassium improves, will consider adding lasix. Will order paracenthesis for tomorrow. (2) Hypokalemia: Suspect secondary to alcohol intake. Potassium chloride 40 meq PO + 10 meq IV given in ER. Continue diuresis with spironolactone 25 mg p.o. every morning. replenished potassium: continue to replace : potasium 20 meq TID ordered (3) Tobacco abuse: Nicotine 21 mg topical every morning (4) Neuropathy: Suspected secondary to alcohol and vitamin deficiencies. Continue duloxetine 40 mg p.o. daily and gabapentin 300 mg p.o. 3 times daily (5) Acid reflux: Switch omeprazole to pantoprazole as per hospital formulary (6) DVT prophylaxis: [facility] Admission and Anticipated Discharge Date Admission Date: August 02, 2020 Subjective 54 yo female reports feeling well, except for the tense belly. She denies any fever, chills, nausea, vomiting. Review of Systems Review of Systems: All systems reviewed & are unremarkable except as noted in HPI & below Physical Exam Physical Exam: Constitutional: well developed and well nourished; no acute distress Eyes: PERRL, conjunctivae normal, anicteric sclerae ENMT: external ear and nose normal, oropharynx normal Neck: trachea midline Respiratory: normal respiratory effort, lungs clear to auscultation Cardiovascular: Rate/Rhythm: regular rate and regular rhythm Heart Sounds: no murmur Vessels: no JVD Extremities: normal capillary refill and + edema (1+ pretibial bilaterally equal) Gastrointestinal (Abdomen): Inspection/Auscultation: + abdomen distended and normal bowel sounds; no abdominal edema Percussion/Palpation: + abdomen nontender and abdomen soft; no guarding and abdomen not rigid Musculoskeletal: no cyanosis or clubbing, extremities motor strength 5/5 Skin: no rashes, warm and dry Neurologic: moves all extremities and awake; no focal motor deficits and not confused Speech / Cognition: normal speech Motor/Sensory: + sensory deficit (Tingling in toes) Psychiatric: A+Ox3, euthymic affect Genitourinary: no CVA tenderness Results & Data Results & Data ([facility]) Vital Signs (Past 12 Hours) Vital Signs Temp Pulse Resp BP Pulse Ox 08/04/20 15:05 36.7 C 77 20 118/74 94 PG Care Time/CCT Total # of Minutes Spent Total Time Spent with Patient: Total time spent is greater than 50% in coordination of care (as documented) at patient's floor/unit and/or counseling patient: Coding Level of Care Code 04926 Subseq Hosp Care Lvl 3 Diagnoses Alcoholic hepatitis with ascites K70.11 Hypokalemia E87.6 Tobacco abuse Z72.0 Neuropathy G62.9 Acid reflux K21.9 DVT prophylaxis Z29.9
[2020-08-05] MEDS: NICOTINE 21 MG/24 HR TDSY TD SCH (09:18)
[2020-08-05] MEDS: GABAPENTIN 300 MG CAP PO SCH ×3 (09:18→20:04)
[2020-08-05] MEDS: DULoxetine HCL 20 MG CAP PO SCH (09:19)
[2020-08-05] MEDS: CHOLECALCIFEROL 1,000 UNITS 25 MCG TAB PO SCH (09:19)
[2020-08-05] MEDS: FOLIC ACID 1 MG TAB PO SCH (09:19)
[2020-08-05] MEDS: VITAMIN B COMPLEX TAB PO SCH (09:19)
[2020-08-05] MEDS: SPIRONOLACTONE 25 MG TAB PO SCH (09:19)
[2020-08-05] MEDS: PANTOprazole 40 MG TAB PO SCH (09:19)
--- NOTE | 2020-08-05 13:42 | Ultrasound Report ---
ULTRASOUND GUIDED PARACENTESIS CLINICAL HISTORY: Ascites. COMPARISON STUDY: CT of the abdomen and pelvis August 02, 2020. PROCEDURE: The risks, benefits, and alternatives to the procedure were discussed with the patient inc luding the risk of bleeding, infection and injury to adjacent structures. The patient agreed to the procedure and informed written consent was obtained. Following real-time ultrasound localization, the skin of the right lower quadrant was prepped and draped. Following local anesthesia with Xylocaine, the sheath paracentesis needle was inserted and approximately 2.3 liters of straw-colored fluid was r emoved by vacuum suction. The patient tolerated the procedure well and no immediate complications were evident. IMPRESSION: Ultrasound-guided paracentesis with removal of 2.3 liters of ascites. 1 L of ascites was sent to the laboratory for analysis as ordered. ACT 112: Negative or not required by law. Electronically signed by: Joseph Cochran M.D. 08/05/2020 1:41 PM
[2020-08-05] MEDS ORDERED: IBUPROFEN 600 MG TAB PO STA (14:25)
[2020-08-05 15:04] LABS: Basophils # (auto) 0.04 K/uL (0-0.2); Basophils % (auto) 0.4 %; Eosinophils % (auto) 1.8 %; Hematocrit (blood only) 40.6 % (37-47); Immature Granulocytes # (auto) 0.05 K/uL (0.00-0.02); Immature Granulocytes % (auto) 0.4 %; Lymphocytes # (auto) 2.33 K/uL (1.2-3.4); Lymphocytes % (auto) 20.4 %; Mean Corpuscular Hemoglobin 36.2 pg (25-34); Mean Corpuscular Hgb Conc 34.5 g/dL (32-36); Mean Corpuscular Volume 104.9 fL (80-100); Mean Platelet Volume 9.9 fL (7.4-10.4); Monocytes # (auto) 1.68 K/uL (0.11-0.59); Monocytes % (auto) 14.7 %; Neutrophils # (auto) 7.12 K/uL (1.4-6.5); Neutrophils % (auto) 62.3 %; Platelet Count 201 K/uL (130-400); RDW Coefficient of Variation 15.8 % (11.5-14.5); RDW Standard Deviation 60.5 fL (36.4-46.3); Red Blood Count 3.87 M/uL (4.2-5.4); White Blood Count 11.42 K/uL (4.8-10.8)
[2020-08-05 15:40] LABS: Albumin Globulin Ratio 0.6 (0.9-2); BUN Creatinine Ratio 5.6 (10-20); Bilirubin,Total 2.6 mg/dl (0.2-1); Calcium 8.3 mg/dl (8.5-10.1); Creatinine Clr Calc Pharmacy 76.3 ml/min; Est GFR (African American) 115.5; Est GFR (Non-African American) 99.6; Globulin 3.4 gm/dl (2.5-4.0); Potassium 4.5 mmol/L (3.5-5.1); Total Protein 5.4 gm/dl (6.4-8.2)
[2020-08-05] MEDS ORDERED: LACTATED RINGER'S 1,000 ML IV SCH (16:15)
[2020-08-05] MEDS ORDERED: LACTATED RINGER'S 500 ML IV SCH (16:16)
--- NOTE | 2020-08-05 22:07 | Hospitalist Progress Note ---
Date of Service August 05, 2020 Assessment & Plan (1) Alcoholic hepatitis with ascites: Maddrey's discriminant function 20.9 - no need for prednisolone [place] alcoholic hepatitis score 7 - low risk MELD Score 18 - 6.0% 3-month mortality Patient will have paracenthesis today. will start lasix and spironolactone in AM as this should help manage ascities; Consult gastroenterology. Had discussion withrosalia. Patient is an alcoholic. Given that patient's labs are concerning for cirrhosis : elevated INR, liver function tests, patient will need to abstain from drinking. If not, she will continue to deteriorate. (2) Hypokalemia: Suspect secondary to alcohol intake. Potassium chloride 40 meq PO + 10 meq IV given in ER. Continue diuresis with spironolactone 25 mg p.o. every morning. replenished potassium: (3) Tobacco abuse: Nicotine 21 mg topical every morning (4) Neuropathy: Suspected secondary to alcohol and vitamin deficiencies. Continue duloxetine 40 mg p.o. daily and gabapentin 300 mg p.o. 3 times daily (5) Acid reflux: Switch omeprazole to pantoprazole as per hospital formulary (6) DVT prophylaxis: SCDs (7) Alcoholism: will benefit from rehab. Admission and Anticipated Discharge Date Admission Date: August 02, 2020 Subjective Patient reports no change in symptoms today. Review of Systems Review of Systems: All systems reviewed & are unremarkable except as noted in HPI & below Physical Exam Physical Exam: Constitutional: wd/wn; no acute distress Eyes: PERRL, conjunctivae normal, anicteric sclerae ENMT: external ear and nose normal, oropharynx normal Neck: trachea midline Respiratory: normal respiratory effort, lungs clear to auscultation Cardiovascular: Rate/Rhythm: regular rate and regular rhythm Heart Sounds: no murmur Vessels: no JVD Extremities: normal capillary refill and + edema (1+ pretibial bilaterally equal) Gastrointestinal (Abdomen): abdomen less distended and normal bowel sounds; abdomen nontender and soft; no guarding and abdomen not rigid Musculoskeletal: no cyanosis or clubbing, extremities motor strength 5/5 Skin: no rashes, warm and dry Neurologic: moves all extremities and awake; no focal motor deficits and not confused Speech / Cognition: normal speech Motor/Sensory: + sensory deficit (Tingling in toes) Psychiatric: A+Ox3, euthymic affect Genitourinary: no CVA tenderness Results & Data Results & Data ([facility]) Vital Signs (Past 12 Hours) Vital Signs Temp Pulse Resp BP Pulse Ox 08/05/20 15:00 36.7 C 80 16 105/62 90 08/05/20 14:30 36.8 C 77 17 108/65 92 08/05/20 14:02 36.7 C 78 17 107/60 94 08/05/20 13:32 36.7 C 79 16 115/68 93 PG Care Time/CCT Total # of Minutes Spent Total Time Spent with Patient: Total time spent is greater than 50% in coordination of care (as documented) at patient's floor/unit and/or counseling patient: Coding Level of Care Code 82991 Subseq Hosp Care Lvl 3 Diagnoses Alcoholic hepatitis with ascites K70.11 Hypokalemia E87.6 Tobacco abuse Z72.0 Neuropathy G62.9 Acid reflux K21.9 DVT prophylaxis Z29.9 Alcoholism F10.20 Time Spent (min) 35
[2020-08-06 06:57] LABS: Basophils # (auto) 0.06 K/uL (0-0.2); Basophils % (auto) 0.5 %; Eosinophils # (auto) 0.24 K/uL (0-0.5); Eosinophils % (auto) 2.2 %; Hematocrit (blood only) 38.9 % (37-47); Hemoglobin 13.3 g/dL (12.0-16.0); Immature Granulocytes # (auto) 0.06 K/uL (0.00-0.02); Immature Granulocytes % (auto) 0.5 %; Lymphocytes # (auto) 3.01 K/uL (1.2-3.4); Lymphocytes % (auto) 27.1 %; Mean Corpuscular Hemoglobin 35.7 pg (25-34); Mean Corpuscular Hgb Conc 34.2 g/dL (32-36); Mean Corpuscular Volume 104.3 fL (80-100); Mean Platelet Volume 9.9 fL (7.4-10.4); Monocytes # (auto) 1.57 K/uL (0.11-0.59); Monocytes % (auto) 14.2 %; Neutrophils # (auto) 6.15 K/uL (1.4-6.5); Neutrophils % (auto) 55.5 %; Platelet Count 202 K/uL (130-400); RDW Coefficient of Variation 15.6 % (11.5-14.5); RDW Standard Deviation 58.6 fL (36.4-46.3); Red Blood Count 3.73 M/uL (4.2-5.4); White Blood Count 11.09 K/uL (4.8-10.8)
[2020-08-06 07:28] LABS: Albumin Globulin Ratio 0.5 (0.9-2); Albumin Level 1.7 gm/dl (3.4-5.0); BUN Creatinine Ratio 9.7 (10-20); Bilirubin,Total 2.3 mg/dl (0.2-1); Calcium 7.6 mg/dl (8.5-10.1); Creatinine Clr Calc Pharmacy 106.8 ml/min; Est GFR (Non-African American) 111.3; Globulin 3.2 gm/dl (2.5-4.0); Potassium 4.2 mmol/L (3.5-5.1); Total Protein 4.9 gm/dl (6.4-8.2)
[2020-08-06] MEDS ORDERED: FUROSEMIDE 20 MG TAB PO SCH (09:00)
[2020-08-06] MEDS ORDERED: SPIRONOLACTONE 25 MG TAB PO SCH (09:00)
[2020-08-06] MEDS: GABAPENTIN 300 MG CAP PO SCH ×2 (09:08→14:18)
[2020-08-06] MEDS: PANTOprazole 40 MG TAB PO SCH (09:08)
[2020-08-06] MEDS: FOLIC ACID 1 MG TAB PO SCH (09:08)
[2020-08-06] MEDS: CHOLECALCIFEROL 1,000 UNITS 25 MCG TAB PO SCH (09:08)
[2020-08-06] MEDS: DULoxetine HCL 20 MG CAP PO SCH (09:08)
[2020-08-06] MEDS: VITAMIN B COMPLEX TAB PO SCH (09:08)
[2020-08-06] MEDS: NICOTINE 21 MG/24 HR TDSY TD SCH (09:09)
[2020-08-06 10:13] LABS: Albumin Peritoneal Fluid < 0.6 g/dl
[2020-08-06] MEDS ORDERED: IBUPROFEN 200 MG TAB PO STA (11:06)
[2020-08-06 11:24] LABS: Appearance Peritoneal Fluid CLEAR; Basophils, Fluid 0 %; Color Peritoneal Fluid YELLOW; Eosinophils, Fluid 3 %; Lymphocytes, Fluid 20 %; Mono,Macrophage,Mesothelial 64 %; Neutrophils, Fluid 13 %; RBC Peritoneal Fluid (A) < 3000 /uL; WBC Peritoneal Fluid (A) 164 /ul (0-300)
--- NOTE | 2020-08-12 10:42 | Discharge Summary ---
Date of Service August 06, 2020 Admission HPI Per Admitting Provider Morenita Pascual is a 54-year-old female who presents to the ER with lower abdominal pain, distension and nausea. She reports intermittent bloating, nausea and vomiting for many months however more persistent over the past 5 days with new onset suprapubic pain. Pain severity 7/10, no radiation, aching. She denies any melena, bright blood in stool. No recent change in bowel habits however she notes intermittent diarrhea and constipation for many years with a prior diagnosis of irritable bowel syndrome. The patient reports intermittent alcohol use with binging episodes related to increased stress. She reports last having alcohol 5 days ago. During her binges she admits to drinking a few beers and shots (of fireball). She denies any alcohol withdrawal symptoms. She reports her is going to remove all the alcohol and into her house In the ER labs concerning for hypokalemia and elevated LFTs. CT concerning for small to moderate amount of ascites. Patient was given potassium supplementatio n and referred to medicine for hyperkalemia and abdominal ascites. Principal Diagnosis alcoholic hepatitis with ascites Discharge Exam Constitutional: wd/wn; no acute distress Eyes: PERRL, conjunctivae normal, anicteric sclerae ENMT: external ear and nose normal, oropharynx normal Neck: trachea midline Respiratory: normal respiratory effort, lungs clear to auscultation Cardiovascular: Rate/Rhythm: regular rate and regular rhythm Heart Sounds: no murmur Vessels: no JVD Extremities: normal capillary refill and + edema (1+ pretibial bilaterally equal) Gastrointestinal (Abdomen): abdomen less distended and normal bowel sounds; abdomen nontender and soft; no guarding and abdomen not rigid Musculoskeletal: no cyanosis or clubbing, extremities motor strength 5/5 Skin: no rashes, warm and dry Neurologic: moves all extremities and awake; no focal motor deficits and not confused Speech / Cognition: normal speech Motor/Sensory: + sensory deficit (Tingling in toes) Psychiatric: A+Ox3, euthymic affect Genitourinary: no CVA tenderness Discharge Data Allergies Allergy/AdvReac Type Severity Reaction Status Date / Time No Known Allergies Allergy Verified 08/11/20 13:03 Consultations 08/02/20 18:07 ED Decision to Admit Stat 08/02/20 18:47 Consult Gastroenterology Stat 08/02/20 20:51 Consult Case Management - Discharge Planning Routine Ordered Studies 08/02/20 16:47 CT abd pelvis IV con only Stat 08/05/20 13:00 US paracentesis abd w/image Routine Hospital Course (1) Alcoholic hepatitis with ascites: Kriss's discriminant function 20.9 - no need for prednisolone [place] alcoholic hepatitis score 7 - low risk MELD Score 18 - 6.0% 3-month mortality Patient will have paracenthesis today. will start lasix and spironolactone in AM as this should help manage ascities; Consult gastroenterology. Had discussion with . Patient is an alcoholic. Given that patient's labs are concerning for cirrhosis : elevated INR, liver function tests, patient will need to abstain from drinking. If not, she will continue to deteriorate. Will discharge patient on furosemide/spironolactone. Will likely need to titrate up to 40/100 mg respectively. (2) Hypokalemia: Suspect secondary to alcohol intake. Potassium chloride 40 meq PO + 10 meq IV given in ER. Continue diuresis with spironolactone 25 mg p.o. every morning. replenished potassium: (3) Tobacco abuse: Nicotine 21 mg topical every morning (4) Neuropathy: Suspected secondary to alcohol and vitamin deficiencies. Continue duloxetine 40 mg p.o. daily and gabapentin 300 mg p.o. 3 times daily (5) Acid reflux: Switch omeprazole to pantoprazole as per hospital formulary (6) DVT prophylaxis: SCDs (7) Alcoholism: will benefit from rehab. Total Time Total Time Spent Total Time Spent (In Minutes): 32 Total Time Includes: Examination of the Patient, Discharge Planning and Medication Reconciliation Discharge Plan Discharge Items Patient Disposition: Home - Self-Care Reason For Visit: ACUTE ALCOHOLIC HEPATITIS Discharge Diagnosis: Acute Alcoholic hepatitis Activity: Resume your previous activity Non-emergency contact: Primary Care Provider Call non-emergency contact if: you have any medication questions Follow-up/Referrals: Muna Bishop CRNP [Primary Care Provider] - 08/11/20 2:00 pm Diet: Regular and Low Sodium (2gm) Addtl Attending Provider Instructions: -Please followup with gastroenterology : for further assessment of early cirrhosis findings & consideration of further autoimmune studies to exclude other etiologies. -Recommend alcohol cessation. Recommend outpatient alcohol treatment programs: list of providers given to you. -Continue vitamin supplementation and supportive care. Followup with [facility] within 1 month Followup with PCP in 1-2 weeks. Check BMP in 1 week. Pending Studies at Discharge: No Stand-Alone Forms: [facility], Smoking Cessation Medications and DC Order Prescriptions: New nicotine [Nicoderm CQ] 21 mg/24 hr Patch 24 Hour 21 mg transdermal QAM Qty: 28 RF: 0 Continued B-complex with vitamin C capsule 1 cap PO DAILY Qty: 30 RF: 0 cholecalciferol (vitamin D3) 2,000 unit capsule 2,000 units PO DAILY RF: 0 riboflavin (vitamin B2) 50 mg tablet 50 mg PO DAILY RF: 0 lorazepam 0.5 mg tablet 0.5 mg PO DAILY PRN (Reason: Panic Attack(S)) Qty: 30 RF: 0 triamcinolone acetonide 0.5 % cream See Rx Instructions TOP .COMPLEX PRN (Reason: Itching) RF: 0 omeprazole 20 mg tablet,delayed release (DR/EC) 20 mg PO QAM RF: 0 gabapentin 300 mg capsule 300 mg PO TID RF: 0 folic acid 1 mg tablet 1 mg PO DAILY RF: 0 Discontinued doxycycline hyclate 100 mg tablet 100 mg PO BID Qty: 20 RF: 0 No Action potassium chloride 20 mEq tablet extended release 20 meq PO DAILY Qty: 30 RF: 3 spironolactone 25 mg tablet 50 mg PO QAM Qty: 180 RF: 1 furosemide 20 mg tablet 20 mg PO QAM Qty: 90 RF: 1 duloxetine 60 mg capsule,delayed release(DR/EC) 60 mg PO DAILY Qty: 90 RF: 1 albuterol sulfate [ProAir HFA] 90 mcg/actuation HFA aerosol inhaler 2 puff INHALATION Q4 PRN (Reason: shortness of breath) Qty: 8.5 RF: 5 Discharge Orders: Discharge Order (Routine); Ordered 08/06/20 Ordered By: Chirag Young/Other Patient Handouts: Understanding the Disease of Addiction, Alcoholism: Getting Help Admission Data Admit Date/Time: 08/02/20 19:51 Attending Provider: Chirag Pierce Admit Provider: Derrek Oakes Primary Care Provider: Muna Bishop Other Providers: Derrek Oakes ; Ke Andrade Other Interventions: Discharge Summary Assessment (RN) Last Done: 08/06/20 15:51 Coding Level of Care Code D/C Day Management >30 mins Diagnoses Alcoholic hepatitis with ascites K70.11 Hypokalemia E87.6 Tobacco abuse Z72.0 Neuropathy G62.9 Acid reflux K21.9 DVT prophylaxis Z29.9 Alcoholism F10.20
== END 2020-08-06 16:55 | disposition home or self-care (01) | DRG 434 ==
LOC: ED 15:44 → SUATTDRO 19:51 → 3W 19:51

== ENCOUNTER 2024-09-10 09:28 | Inpatient (IN) ==
[2024-09-10 10:33] LABS: Partial Thromboplastin Time 27 Seconds (21-31); Prothrombin Time 10.9 Seconds (9.0-12.0)
[2024-09-10 10:36] LABS: Basophils # (auto) 0.06 K/uL (0.00-0.20); Basophils % (auto) 0.6 %; Eosinophils # (auto) 0.22 K/uL (0.00-0.50); Eosinophils % (auto) 2.3 %; Hematocrit (blood only) 40.8 % (37.0-47.0); Hemoglobin 13.7 g/dl (12.0-16.0); Immature Granulocytes # (auto) 0.05 K/uL (0.01-0.20); Immature Granulocytes % (auto) 0.5 %; Lymphocytes # (auto) 1.86 K/uL (1.20-3.40); Lymphocytes % (auto) 19.5 %; Mean Corpuscular Hemoglobin 34.9 pg (25.0-34.0); Mean Corpuscular Hgb Conc 33.6 g/dL (32.0-36.0); Mean Corpuscular Volume 104.1 fL (80.0-100.0); Mean Platelet Volume 8.7 fL (9.4-12.4); Monocytes # (auto) 0.89 K/uL (0.11-0.59); Monocytes % (auto) 9.3 %; Neutrophils # (auto) 6.44 K/uL (1.40-6.50); Neutrophils % (auto) 67.8 %; Platelet Count 362 K/uL (130-400); RDW Coefficient of Variation 17.9 % (11.5-14.5); Red Blood Count 3.92 M/uL (4.20-5.40); White Blood Count 9.52 K/ul (4.8-10.8)
[2024-09-10 10:39] LABS: Albumin Level 3.7 gm/dl (3.4-5.0); Bilirubin,Total 0.4 mg/dl (0.2-1.0); Calcium 8.7 mg/dl (8.6-10.3); Magnesium 1.8 mg/dl (1.7-2.4); Potassium 3.5 mmol/L (3.5-5.1)
--- NOTE | 2024-09-10 10:43 | XRay Report ---
XR chest 1V portable CLINICAL HISTORY: neuro deficit, acute stroke suspected COMPARISON STUDY: 09/04/2018 FINDINGS: Heart size and pulmonary vasculature are normal. No effusion, consolidation, or pneumothora x. IMPRESSION: No acute findings. ACT 112: Negative or not required by law. Electronically signed by: William Velasquez M.D. 09/10/2024 10:42 AM
[2024-09-10 10:44] LABS: Albumin Globulin Ratio 1.4 (0.9-2); BUN Creatinine Ratio 11.1 (10-20); Creatinine Clr Calc Pharmacy 69.5 ml/min; Globulin 2.6 gm/dl (2.5-4.0); Total Protein 6.3 gm/dl (6.0-8.3)
[2024-09-10 10:49] LABS: Troponin I High Sensitivity 10.1 pg/ml (0-14)
[2024-09-10] MEDS: OPTIRAY 320 125ml IV ONE (10:57)
[2024-09-10 11:02] LABS: iSTAT Creatinine 0.7 mg/dl (0.6-1.3); iSTAT Hemoglobin 15.3 g/dl (12.0-16.0); iSTAT Ionized Calcium 1.15 mmol/l (1.12-1.32); iSTAT Potassium 3.4 mmol/L (3.3-5.0)
--- NOTE | 2024-09-10 11:19 | CT Scan Report ---
CT head/brain wo con CLINICAL HISTORY: neuro deficit, acute stroke suspected. TECHNIQUE: Multiple axial CT images of the head were obtained without contrast. A dose lowering tech nique was utilized adhering to the principles of ALARA. CT DOSE: 955.92 mGy.cm COMPARISON: 03/25/2023 FINDINGS: There is an interval moderate sized area of hypodensity at the left occipital lobe consiste nt with recent subacute infarction. No intracranial hemorrhage seen. No mass effect, midline shift, o r hydrocephalus. No skull fracture. Visualized paranasal sinuses and mastoid air cells are clear. 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 ACT 112: Negative or not required by law. The above report was generated using voice recognition software. It may contain grammatical, syntax o r spelling errors. Electronically signed by: William Velasquez M.D. 09/10/2024 11:18 AM
--- NOTE | 2024-09-10 11:39 | History & Physical Report ---
Date of Service September 10, 2024 Assessment & Plan (1) CVA (cerebral vascular accident): (2) Hemianopia of right eye: (3) Cirrhosis: Plan Morenita is a 59-year-old female who presented for vision loss in the lateral aspect of her right eye on 09/10. Found to have a subacute left occipital stroke on head CT on arrival. Coming in for stroke workup. #Subacute left occipital CVA Given timeline of symptoms, patient was not a TNKase candidate on arrival Head CT on arrival revealed a recent subacute infarction at the left occipital lobe Head/neck CTA ordered, pending Brain MRI without ordered, pending Echocardiogram with bubble study ordered, pending Neurochecks q4h Permissive HTN Patient passed dysphagia screen in the ED; okay to eat Neurology consult appreciated Based on timeline, patient is outside the window as an interventional candidate Recommend DAPT and IVF hydration DAPT with aspirin 81 mg and Plavix 75 mg daily PT/OT evaluations appreciated AM CBC, BMP, fasting lipid panel, A1c #Liver cirrhosis Continue furosemide, spironolactone She reports that she has been told in the past that she is okay to take Tylenol LFTs okay on arrival #Current everyday tobacco cigarette smoker 1 PPD; declined nicotine patch Chronic stable conditions: GERD/intestinal metaplasiaomeprazole B/L LE neuropathygabapentin Disposition: Admit to PCU telemetry Full code Regular diet VTE PPx: SCDs + DAPT History of Present Illness Chief Complaint: Right eye vision changes Primary Care Provider: Danish CorbinDO Xavier is a 59-year-old female with PMH of anxiety, alcoholic hepatitis, esophageal varices, gastric intestinal metaplasia, and tobacco use. She presented on 09/10 for right eye vision deficits. She reports that yesterday, around 1630, her vision suddenly became "white" in both eyes. This lasted for approximately 2 minutes, and then after this she was missing vision in the lateral corner of her right eye. She still having blurry vision in her right eye and cannot see out of the corner of her right eye. No prior history of strokes. Patient's (Philippe) at bedside reports no slurred speech, facial droop, or unilateral deficits in the upper/lower extremities. Her only other symptom has been a pounding headache that comes in waves. It is mainly located bilaterally across the forehead. She does have a history of headaches, but reports this 1 was particularly bad. He rates it 8/10 at present. She took her regular gabapentin this morning, as well as 2 Advil for her headache. No recent change in medications. Additionally, she does report she has intermittent chest palpitations that lead to SOB. She normally takes a deep breath and rests to help them subside. No history of A-fib to her knowledge. Patient is a current everyday tobacco cigarette smoker; 1 PPD. She declines a nicotine patch on admission. She denies any recent alcohol use. Patient denies any medications to allergies; reports she is okay to take aspirin. Patient reports that she does not wear glasses or contacts at baseline. Patient's vitals are stable at time of admission. ED course: Aspirin 324 mg p.o. ROS: Patient endorses right eye vision deficits, headache, dizziness, feeling off balance, intermittent chest palpitations/SOB, loose stool, and neuropathy in the legs. Patient denies fever, chills, lightheadedness, falls, syncope, photophobia, neck pain, tinnitus, chest pain, SOB at rest, pleuritic CP, cough, abdominal pain, N/V/D, and changes in urinary/bowel habits. Allergies Allergy/AdvReac Type Severity Reaction Status Date / Time tramadol AdvReac Mild Nausea Verified 05/28/24 09:22 Home Medications Medication Instructions Recorded Confirmed Type triamcinolone acetonide 0.5 % 1 applic topical UD PRN Itching 12/22/18 09/10/24 History topical cream cholecalciferol (vitamin D3) 50 2,000 units PO QPM 04/07/19 09/10/24 History mcg (2,000 unit) capsule riboflavin (vitamin B2) 50 mg 50 mg PO QPM 04/07/19 09/10/24 History tablet folic acid 1 mg tablet 1 mg PO QPM 08/02/20 09/10/24 History B-complex with vitamin C 1 cap PO QPM 10/13/21 09/10/24 History lorazepam 0.5 mg tablet 0.5 mg PO DAILY PRN Panic 01/03/22 09/10/24 Rx Attack(S) #30 tabs furosemide 20 mg tablet 20 mg PO QAM #90 tabs 06/19/22 09/10/24 Rx cetirizine 10 mg tablet 10 mg PO DAILY #90 tabs 11/05/22 09/10/24 Rx gabapentin 300 mg capsule 300 mg PO QID #90 caps 02/15/23 09/10/24 Rx albuterol sulfate 90 mcg/actuation 2 puff inhalation Q4 PRN shortness 02/25/23 09/10/24 Rx aerosol inhaler (ProAir HFA) of breath #8.5 grams omeprazole 20 mg tablet,delayed 20 mg PO QAM #90 tabs 02/25/23 09/10/24 Rx release rosuvastatin 5 mg tablet 5 mg PO PM 03/25/23 09/10/24 History spironolactone 100 mg tablet 100 mg PO QAM 03/25/23 09/10/24 History potassium chloride 20 mEq 20 meq PO QAM #90 tabs 05/28/23 09/10/24 Rx tablet,extended release carbamazepine 200 mg tablet 100 mg (1/2 x 200 mg) PO BID #21 08/19/23 09/10/24 Rx tabs nystatin 100,000 unit/gram topical 1 applic topical DAILY PRN Other 09/10/24 09/10/24 History cream Past Med/Surg History Problem List Hemianopia of right eye CVA (cerebral vascular accident) Esophageal varices Carpal tunnel syndrome, left Coronary artery calcification Cervicogenic headache Paresthesias in left hand Tobacco use Encounter for pre-operative examination History of colon polyps BENIGN Gastric intestinal metaplasia Elevated liver enzymes F/U ULTRASOUND KELSEY 10/19/21 Cirrhosis Alcoholism Alcoholic hepatitis with ascites Folliculitis Vitamin D deficiency Acid reflux (Acute) Anxiety (Acute) Constipation (Acute) Hypokalemia (Acute) Mood swings (Acute) Seasonal allergies (Acute) Riboflavin (vitamin B2) deficiency (Acute) Thiamine deficiency (Acute) Numbness and tingling of both legs (Acute) Medical History Numbness and tingling of both legs Acid reflux Vitamin D deficiency History of alcoholic hepatitis History of alcoholism Cirrhosis History of colon polyps Coronary artery calcification Hx of Lyme disease ~2021 treated Cough intermittent, reason for inhaler; uses ~1-2 times per week History of panic attacks Seasonal allergies Hx of ascites Anxiety Neuropathy reason for carbamazepine Tobacco abuse GERD (gastroesophageal reflux disease) Surgical History History of esophagogastroduodenoscopy (EGD) History of surgery on wrist tendonitis History of endoscopy History of colonoscopy History of abdominal paracentesis X 2 History of tooth extraction wisdom teeth Family History Mother Family history of diabetes mellitus Cardiac disorder Hypertension Thyroid disease Coronary heart disease Father Myocardial infarction Stroke Grandmother Lung cancer Other No family history of adverse response to anesthesia Denies family history of Ovarian cancer Prostate cancer Breast cancer Colorectal cancer Social History Smoking Status: Current every day smoker Tobacco Type: Cigarettes Age Started Using Tobacco: 27; packs per day: 0.5; Cigarettes Per Day: ~5 per day- advised; Second Hand Exposure: Yes (in the past); Do You Dip or Chew Tobacco: No; Hx Alcohol Use: No (no longer drinks alcohol) Hx Substance Use: Yes (advised) Last Used Substance Other:: 05/23/24 Preferred Language: Uzbek Communication Ability: Effective Hearing Ability: Normal 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 Beliefs That Will Affect Care: None marital status: Current Living Situation: Spouse current occupational status: employed current occupation: [employer] Feels Safe at Home: Yes Childhood Exposure to Second-Hand Smoke: No Diet: regular caffeine: No Dental Care, Regularly: No Physical Activity Frequency: Does not Exercise Seatbelt Use: always Sunscreen Use: Yes Assistive Devices: Denture - Upper and Denture - Lower Review of Systems Review of Systems: See HPI above Physical Exam Physical Exam: General: no acute distress; anxious; at bedside; non-toxic appearing; well-nourished; cooperative; SpO2 97% on RA HEENT: normocephalic, atraumatic; no scleral icterus; PERRLA w/ EOMs intact; negative nystagmus; visual lei by confrontation revealed vision loss/hemianopsia in the upper right aspect of patient's right eye; hearing intact; patient demonstrates the ability to smile, frown, and lift eyebrows without unilateral deficits; patient demonstrates ability to protrude and wiggle tongue bilaterally without unilateral deficits Neck: supple; trachea midline Skin: warm, dry without signs of tenting; no cyanosis; no rashes, bruising, lesions, or erythema noted CV: chest wall NTP; RRR; S1/S2 normal; no murmurs/rubs/gallops; pulses intact and symmetric at radial, DP, and PT Lungs: no acute respiratory distress; symmetrical chest wall expansion; clear breath sounds across all lung lei w/o adventitious sounds; no wheezing ABD: Soft, NTP; BS present; no rebound/guarding; no distention MSK: no tics or fasciculations; no edema noted in the LEs b/l, nonerythematous; 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; patient demonstrates ability to wiggle toes/plantarflex/dorsiflex, lift legs bilaterally against resistance without unilateral deficits Neuro: A&Ox3; normal mood and affect; fluent speech; no slurred speech or facial droop appreciated; negative pronator drift; patient reports diminished sensation in the right forehead when compared to the left; otherwise she reports that sensation is intact and symmetric in the lower face, upper extremities, and lower extremity bilaterally Results & Data Results & Data Vital Signs (Past 12 Hours) Vital Signs Temp Pulse Pulse Resp BP Pulse Ox O2 Del Method 09/10/24 10:13 98 Room Air 09/10/24 10:13 87 18 98 Room Air 09/10/24 09:50 84 09/10/24 09:31 36.8 C 88 17 114/74 97 Room Air Laboratory Results Abnormal lab results 09/10/24 09/10/24 Range/Units 09:49 10:48 RBC 3.92 L (4.20-5.40) M/uL MCV 104.1 H (80.0-100.0) fL MCH 34.9 H (25.0-34.0) pg RDW Std Deviation 68.0 H (36.4-46.3) fL RDW Coeff of Efra 17.9 H (11.5-14.5) % MPV 8.7 L (9.4-12.4) fL [place] # (Auto) 0.89 H (0.11-0.59) K/uL Sodium 134 L (136-145) mmol/L POC Chloride 98 L (101-112) mmol/L Glucose 105 H (70-99(Fasting)) mg/dl POC Glucose (other) 100 H (70-99) mg/dl Alkaline Phosphatase 137 H (34-104) U/L Diagnostic Findings Chest X-Ray 09/10/24 10:07 XR chest 1V portable CLINICAL HISTORY: neuro deficit, acute stroke suspected COMPARISON STUDY: 09/04/2018 FINDINGS: Heart size and pulmonary vasculature are normal. No effusion, consolidation, or pneumothorax. IMPRESSION: No acute findings. ACT 112: Negative or not required by law. Electronically signed by: William Velasquez M.D. 09/10/2024 10:[address] 09/10/24 10:07 CT head/brain wo con CLINICAL HISTORY: neuro deficit, acute stroke suspected. TECHNIQUE: Multiple axial CT images of the head were obtained without contrast. A dose lowering technique was utilized adhering to the principles of ALARA. CT DOSE: 955.92 mGy.cm COMPARISON: 03/25/2023 FINDINGS: There is an interval moderate sized area of hypodensity at the left occipital lobe consistent with recent subacute infarction. No intracranial hemorrhage seen. No mass effect, midline shift, or hydrocephalus. No skull fracture. Visualized paranasal sinuses and mastoid air cells are clear. 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 ACT 112: Negative or not required by law. The above report was generated using voice recognition software. It may contain grammatical, syntax or spelling errors. Electronically signed by: William Velasquez M.D. 09/10/2024 11:18 AM ECG Additional Comments: ECG revealed NSR at 84 bpm; QTc 423 Code Status & VTE Plan Code Status Full code VTE Prophylaxis Plan VTE Prophylaxis will be ordered: Yes Supervising Physician Co-Signing Physician Notes Patient seen and examined, chart reviewed, case discussed with Tab Bates PA-C and I agree with the assessment and plan as above except as otherwise noted Labs and images reviewed 59-year-old female past medical history of anxiety, alcohol induced hepatitis, varices, tobacco use, gastric intestinal metaplasia presented with 21 hours of right eye vision deficits and was evaluated for potential CVA. At time of assessment continues to have blurry vision in her right eye and a field cut in the peripheral field of her right eye. She has not had prior CVAs. No extremity deficits, dysarthria, or aphasia. No facial asymmetry. CThead is with evidence of subacute left occipital lobe infarct CTAhead/neck shows large acute to subacute appearing left occipital lobe infarct redemonstrated. 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 Case was discussed with on-call neurology. She is not a thrombectomy candidate. She is outside of the window for thrombolysis. Agree with dual antiplatelet therapy, statin therapy. She is moving out of the window for permissive hypertension, is normotensive on assessment regardless. Continue ASA/Plavix. Lipid panel pending. Patient is on low end of moderate dose rosuvastatin at 5 mg however her last LDL was significantly suppressed at around 47. Due to potential bleeding risk with over suppression of LDL will defer additional dose increase pending repeat LDL levels. Echo with bubble study pending Has a history of liver cirrhosis, appears compensated at time of admission. Agree with above PG Care Time/CCT Total # of Minutes Spent Total Time Spent with Patient: Total time spent is greater than 50% in coordination of care (as documented) at patient's floor/unit and/or counseling patient: Coding [place] [address] INT INP/OBS CARE 3/75MIN Patient Type Established Medical Decision Making High Complexity Diagnoses CVA (cerebral vascular accident) I63.9 Hemianopia of right eye H53.461 Cirrhosis K74.60
[2024-09-10] MEDS: ASPIRIN 81 MG CHEW PO STA (11:44)
--- NOTE | 2024-09-10 11:45 | CT Scan Report ---
CT angio head w con, CT angio neck with con CLINICAL HISTORY: 59 years-old Female with neuro deficit, acute stroke suspected. Acute stroke lik e symptoms COMPARISON STUDY: Head CT of same day and also 03/25/2023 TECHNIQUE: Following the IV administration of 120 cc of Optiray, CT angiogram of the head and neck wa s performed from the skull base to the vertex. Images are reviewed in the axial, sagittal, and valdes l planes. 3-D MIPS images are created and assessed. IV contrast was administered without complication . All measurements were obtained according to NASCET criteria. A dose lowering technique was utilized adhering to the principles of ALARA. FINDINGS: CT BRAIN: Dictated separately. Large acute versus subacute appearing left occipital infarct noted. CT ANGIOGRAM OF THE HEAD AND NECK: Four-vessel morphology of the thoracic aortic arch. There is patency of the innominate and imaged sub clavian arteries. Common carotid arteries are patent. There is mild atherosclerosis of the carotid bu lbs without significant stenosis. The bilateral anterior and middle cerebral arteries are also patent . Vertebral arteries are codominant and widely patent. There is a 6 mm segment of high-grade stenosis versus occlusion involving the P2 segment of the left posterior cerebral artery, nicely seen on sagi ttal image 43 of series 601 with distal reconstitution. The right posterior cerebral artery is patent . There is no aneurysm, additional high-grade stenosis, or proximal branch occlusion identified. Dura l sinuses appear patent. Pulmonary emphysema with biapical pleural-parenchymal scarring. No pneumothorax. Unremarkable soft ti ssues. No acute fracture. IMPRESSION: 1. Large acute to subacute appearing left occipital lobe infarct redemonstrated. 2. Subcentimeter high-grade stenosis versus occlusion of the left posterior cerebral artery with dist al reconstitution of flow. 3. Otherwise unremarkable CTA of the head and neck. ACT 112: Negative or not required by law. The above report was generated using voice recognition software. It may contain grammatical, syntax o r spelling errors. Electronically signed by: Cruzito Toht M.D. 09/10/2024 11:42 AM
--- NOTE | 2024-09-10 12:28 | Electrocardiogram Report ---
Test Reason : Blood Pressure : */* mmHG Vent. Rate : 84 BPM Atrial Rate : 84 BPM P-R Int : 166 ms QRS Dur : 74 ms QT Int : 358 ms P-R-T Axes : 55 73 49 degrees QTcB Int : 423 ms Normal sinus rhythm Normal ECG When compared with ECG of 02-Aug-2020 19:18, T wave inversion no longer evident in Inferior leads Confirmed by Chan Garcia ([id number]) on 09/10/2024 12:28:43 PM Referred By: Confirmed By: Chan Garcia
[2024-09-10] MEDS ORDERED: PHARMACIST DISCHARGE MED REC CONSULT PRN (12:40)
[2024-09-10] MEDS: SODIUM CHLORIDE 0.9% 1,000 ML IV STA (13:44)
[2024-09-10] MEDS: ACETAMINOPHEN 325 MG TAB PO STA (13:44)
--- NOTE | 2024-09-10 13:54 | Emergency Department Note ---
History of Present Illness General Chief complaint: Dizziness Stated complaint: DIZZY, CAN'T SEE OUT OF RT EYE Time Seen by Provider: 09/10/24 09:48 History of Present Illness Provider complaint: Dizziness headache right eye vision change Maximum Pain Intensity: 7 59-year-old female presents emergency department for dizziness headache and right eye vision change. Patient reports her symptoms began at 1630 yesterday. She stated she was having numbness in her right face and arm also. She reports after 1 hour her numbness got better. She still reports a mild headache and is reporting that she cannot see out of the left corner of her eye. No fever. No neck pain. No falls or traumas. No blood thinners. Home Medications Medication Instructions Recorded Confirmed Type triamcinolone acetonide 0.5 % 1 applic topical UD PRN Itching 12/22/18 09/10/24 History topical cream cholecalciferol (vitamin D3) 50 2,000 units PO QPM 04/07/19 09/10/24 History mcg (2,000 unit) capsule riboflavin (vitamin B2) 50 mg 50 mg PO QPM 04/07/19 09/10/24 History tablet folic acid 1 mg tablet 1 mg PO QPM 08/02/20 09/10/24 History B-complex with vitamin C 1 cap PO QPM 10/13/21 09/10/24 History lorazepam 0.5 mg tablet 0.5 mg PO DAILY PRN Panic 01/03/22 09/10/24 Rx Attack(S) #30 tabs furosemide 20 mg tablet 20 mg PO QAM #90 tabs 06/19/22 09/10/24 Rx cetirizine 10 mg tablet 10 mg PO DAILY #90 tabs 11/05/22 09/10/24 Rx gabapentin 300 mg capsule 300 mg PO QID #90 caps 02/15/23 09/10/24 Rx albuterol sulfate 90 mcg/actuation 2 puff inhalation Q4 PRN shortness 02/25/23 09/10/24 Rx aerosol inhaler (ProAir HFA) of breath #8.5 grams omeprazole 20 mg tablet,delayed 20 mg PO QAM #90 tabs 02/25/23 09/10/24 Rx release rosuvastatin 5 mg tablet 5 mg PO PM 03/25/23 09/10/24 History spironolactone 100 mg tablet 100 mg PO QAM 03/25/23 09/10/24 History potassium chloride 20 mEq 20 meq PO QAM #90 tabs 05/28/23 09/10/24 Rx tablet,extended release carbamazepine 200 mg tablet 100 mg (1/2 x 200 mg) PO BID #21 08/19/23 09/10/24 Rx tabs nystatin 100,000 unit/gram topical 1 applic topical DAILY PRN Other 09/10/24 09/10/24 History cream Allergies Allergy/AdvReac Type Severity Reaction Status Date / Time tramadol AdvReac Mild Nausea Verified 05/28/24 09:22 Past Med/Surg History Problem List (Updated 09/10/24 @ 15:25 by Daniel Harry MD) Hemianopia of right eye CVA (cerebral vascular accident) (Acute) Esophageal varices Carpal tunnel syndrome, left Coronary artery calcification Cervicogenic headache Paresthesias in left hand Tobacco use Encounter for pre-operative examination History of colon polyps BENIGN Gastric intestinal metaplasia Elevated liver enzymes F/U ULTRASOUND KELSEY 10/19/21 Cirrhosis Alcoholism Alcoholic hepatitis with ascites Folliculitis Vitamin D deficiency Acid reflux (Acute) Anxiety (Acute) Constipation (Acute) Hypokalemia (Acute) Mood swings (Acute) Seasonal allergies (Acute) Riboflavin (vitamin B2) deficiency (Acute) Thiamine deficiency (Acute) Numbness and tingling of both legs (Acute) Medical History Numbness and tingling of both legs Acid reflux Vitamin D deficiency History of alcoholic hepatitis History of alcoholism Cirrhosis History of colon polyps Coronary artery calcification Hx of Lyme disease ~2021 treated Cough intermittent, reason for inhaler; uses ~1-2 times per week History of panic attacks Seasonal allergies Hx of ascites Anxiety Neuropathy reason for carbamazepine Tobacco abuse GERD (gastroesophageal reflux disease) Surgical History History of esophagogastroduodenoscopy (EGD) History of surgery on wrist tendonitis History of endoscopy History of colonoscopy History of abdominal paracentesis X 2 History of tooth extraction wisdom teeth Family History Mother Family history of diabetes mellitus Cardiac disorder Hypertension Thyroid disease Coronary heart disease Father Myocardial infarction Stroke Grandmother Lung cancer Other No family history of adverse response to anesthesia Denies family history of Ovarian cancer Prostate cancer Breast cancer Colorectal cancer Social History Smoking Status: Current every day smoker Tobacco Type: Cigarettes Age Started Using Tobacco: 27; packs per day: 0.5; Cigarettes Per Day: ~5 per day- advised; Second Hand Exposure: Yes (in the past); Do You Dip or Chew Tobacco: No; Hx Alcohol Use: No (no longer drinks alcohol) Hx Substance Use: Yes (advised) Last Used Substance Other:: 05/23/24 Preferred Language: Mexican Communication Ability: Effective Hearing Ability: Normal It Programmer Required: No Beliefs That Will Affect Care: None marital status: Current Living Situation: Spouse current occupational status: employed current occupation: [employer] Feels Safe at Home: Yes Childhood Exposure to Second-Hand Smoke: No Diet: regular caffeine: No Dental Care, Regularly: No Physical Activity Frequency: Does not Exercise Seatbelt Use: always Sunscreen Use: Yes Assistive Devices: Denture - Upper and Denture - Lower Physical Exam Vital Signs Vital Signs - 24 hr 09/10/24 09:31 09/10/24 09:50 09/10/24 10:13 Temperature 36.8 C Temperature Source Temporal Artery Scan Pulse Rate 88 84 Pulse Rate [Apical] 87 Pulse Rhythm Regular Respiratory Rate 17 18 Respiratory Effort / Characteristics Non-Labored Spontaneous Non-Labored Spontaneous Respiratory Depth Normal Normal Respiratory Pattern Regular Blood Pressure 114/74 Blood Pressure [Right Arm] Blood Pressure Mean 87 Blood Pressure Mean [Right Arm] Blood Pressure Position [Right Arm] Pulse Oximetry 97 98 Oxygen Delivery Method Room Air Room Air Sepsis Recent Fever Within 48 Hours No Sepsis New/Unexplained Change in Mental Status N/A Sepsis Action Taken by Nursing No Action Required 09/10/24 10:13 09/10/24 12:00 09/10/24 14:00 Temperature Temperature Source Pulse Rate Pulse Rate [Apical] 76 82 Pulse Rhythm Respiratory Rate 18 18 Respiratory Effort / Characteristics Non-Labored Spontaneous Non-Labored Spontaneous Respiratory Depth Normal Normal Respiratory Pattern Regular Regular Blood Pressure Blood Pressure [Right Arm] 124/80 126/82 Blood Pressure Mean Blood Pressure Mean [Right Arm] 94 96 Blood Pressure Position [Right Arm] Sitting Sitting Pulse Oximetry 98 97 97 Oxygen Delivery Method Room Air Room Air Room Air Sepsis Recent Fever Within 48 Hours Sepsis New/Unexplained Change in Mental Status Sepsis Action Taken by Nursing 09/10/24 14:59 Temperature Temperature Source Pulse Rate 76 Pulse Rate [Apical] Pulse Rhythm Respiratory Rate 18 Respiratory Effort / Characteristics Respiratory Depth Respiratory Pattern Blood Pressure 121/74 Blood Pressure [Right Arm] Blood Pressure Mean Blood Pressure Mean [Right Arm] Blood Pressure Position [Right Arm] Pulse Oximetry 98 Oxygen Delivery Method Room Air Sepsis Recent Fever Within 48 Hours Sepsis New/Unexplained Change in Mental Status Sepsis Action Taken by Nursing Physical Exam GENERAL: She is oriented to person, place, and time. She appears well-developed and well-nourished. She does not appear distressed. HENT: Exam performed. -Head: Normocephalic and atraumatic. -Right Ear: External ear normal. No mastoid erythema -Left Ear: External ear normal. No mastoid erythema -Mouth/Throat: The oropharynx is clear and moist. No trismus in the jaw. No dental abscesses or uvula swelling. No oropharyngeal exudate or tonsillar abscesses. EYES: Conjunctivae and EOM are normal. Pupils are equal, round, and reactive to light. Right eye exhibits no discharge. Left eye exhibits no discharge. No scleral icterus. Visual acuity: Right eye: 20 out of 200 Left eye: 20 and a 70 NECK: Normal range of motion. Neck supple. No JVD present. No rigidity. No tracheal deviation and normal range of motion present. CV: Normal rate, regular rhythm, normal heart sounds and intact distal pulses. There is no peripheral edema. Palpable radial pulses bue. PULM/CHEST: Effort normal and breath sounds normal. No respiratory distress. No stridor. She has no wheezes. She has no rales. ABD: The abdomen is soft. There is no tenderness. There is no rebound, no guarding NEURO: She is alert and oriented to person, place, and time. She has normal strength. No cranial nerve deficit or sensory deficit. Coordination and gait normal. Cerebellar tests wnl. Right eye partial hemanpia NIHSS 1(3:1) Course Course 09: The patient was evaluated in room C2. A complete history and physical exam was performed Cardiac monitoring: An order was placed for continuous cardiac monitoring. The monitor shows a rate of 70 with sinus rhythm interpreted by me No code stroke called as the patient's symptoms began yesterday at 1630 and she is out of the window for TNKase. 1126: Vital signs stable. Labs unremarkable imaging shows subacute infarct of the left occipital lobe. Patient is not window for TNK. Patient be treated with aspirin and admitted to the hospitalist team. Administered Medications Sodium Chloride (Nss) 1,000 mls @ 80 mls/hr IV .[id number] STA Stop: 09/11/24 01:54 Last Admin: 09/10/24 13:44 Dose: 80 mls/hr Documented By: PELON Discontinued Medications Acetaminophen (Acetaminophen 325 Mg Tab) 650 mg PO NOW STA Stop: 09/10/24 12:52 Last Admin: 09/10/24 13:44 Dose: 650 mg Documented By: PELON Aspirin (Aspirin 81 Mg Chew) 324 mg PO NOW STA Stop: 09/10/24 11:38 Last Admin: 09/10/24 11:44 Dose: 324 mg Documented By: PELON Ioversol (Optiray 320 125ml) 120 ml IV ONCE ONE Stop: 09/10/24 10:58 Last Admin: 09/10/24 10:57 Dose: 120 ml Documented By: ANNE Medical Decision Making Laboratory Data Attestation: I reviewed the patient's lab results. 09/10/24 09:49 09/10/24 09:49 Lab Results 09/10/24 09/10/24 09/10/24 Range/Units 09:49 10:21 10:48 WBC 9.52 (4.8-10.8) K/ul RBC 3.92 L (4.20-5.40) M/uL Hgb 13.7 (12.0-16.0) g/dl POC Hgb 15.3 (12.0-16.0) g/dl Hct 40.8 (37.0-47.0) % POC Hct 45 (37-47) % MCV 104.1 H (80.0-100.0) fL MCH 34.9 H (25.0-34.0) pg MCHC 33.6 (32.0-36.0) g/dL RDW Std Deviation 68.0 H (36.4-46.3) fL RDW Coeff of Efra 17.9 H (11.5-14.5) % Plt Count 362 (130-400) K/uL MPV 8.7 L (9.4-12.4) fL Immature Gran % (Auto) 0.5 % Neut % (Auto) 67.8 % Lymph % (Auto) 19.5 % [place] % (Auto) 9.3 % Eos % (Auto) 2.3 % Baso % (Auto) 0.6 % Neut # (Auto) 6.44 (1.40-6.50) K/uL Lymph # (Auto) 1.86 (1.20-3.40) K/uL [place] # (Auto) 0.89 H (0.11-0.59) K/uL Eos # (Auto) 0.22 (0.00-0.50) K/uL Baso # (Auto) 0.06 (0.00-0.20) K/uL Immature Gran # (Auto) 0.05 (0.01-0.20) K/uL PT 10.9 (9.0-12.0) Seconds INR 1.0 (0.9-1.1) APTT 27 (21-31) Seconds PTT Ratio 1.0 POC Sodium 135 (135-144) mmol/L Sodium 134 L (136-145) mmol/L POC Potassium 3.4 (3.3-5.0) mmol/L Potassium 3.5 (3.5-5.1) mmol/L POC Chloride 98 L (101-112) mmol/L Chloride 101 (98-107) mmol/L Carbon Dioxide 28 (21-32) mmol/L POC Total CO2 25 (24-31) mmol/L Anion Gap 5 (3-11) POC Anion Gap 16.0 (16-25) mmol/L POC BUN 7 (7-18) mg/dl BUN 8 (6-23) mg/dl Creatinine 0.72 (0.6-1.2) mg/dl POC Creatinine 0.7 (0.6-1.3) mg/dl Est Cr Clr Drug Dosing 69.5 ml/min eGFR 97.46 BUN/Creatinine Ratio 11.1 (10-20) Glucose 105 H (70-99(Fasting)) mg/dl POC Glucose (other) 100 H (70-99) mg/dl Calcium 8.7 (8.6-10.3) mg/dl POC Ioniz Calcium Jose Rafael 1.15 (1.12-1.32) mmol/l Magnesium 1.8 (1.7-2.4) mg/dl Total Bilirubin 0.4 (0.2-1.0) mg/dl AST 15 (13-39) U/L ALT 10 (7-52) U/L Alkaline Phosphatase 137 H (34-104) U/L Troponin I High Sens 10.1 (0-14) pg/ml Total Protein 6.3 (6.0-8.3) gm/dl Albumin 3.7 (3.4-5.0) gm/dl Globulin 2.6 (2.5-4.0) gm/dl Albumin/Globulin Ratio 1.4 (0.9-2) Blood Type A Negative Antibody Screen NEGATIVE Imaging Data Attestation: I personally reviewed and interpreted this imaging study as follows: My Impression: Chest x-ray negative. Airway clear. No pneumothorax. No consolidation. No cardiomegaly or cephalization.. No free air under the diaphragm. No fractures of the skeletal structures. Radiologist's Impression: Chest X-Ray 09/10/24 10:07 XR chest 1V portable CLINICAL HISTORY: neuro deficit, acute stroke suspected COMPARISON STUDY: 09/04/2018 FINDINGS: Heart size and pulmonary vasculature are normal. No effusion, consolidation, or pneumothorax. IMPRESSION: No acute findings. ACT 112: Negative or not required by law. Electronically signed by: William Velasquez M.D. 09/10/2024 10:[address] 09/10/24 10:07 CT head/brain wo con CLINICAL HISTORY: neuro deficit, acute stroke suspected. TECHNIQUE: Multiple axial CT images of the head were obtained without contrast. A dose lowering technique was utilized adhering to the principles of ALARA. CT DOSE: 955.92 mGy.cm COMPARISON: 03/25/2023 FINDINGS: There is an interval moderate sized area of hypodensity at the left occipital lobe consistent with recent subacute infarction. No intracranial hemorrhage seen. No mass effect, midline shift, or hydrocephalus. No skull fracture. Visualized paranasal sinuses and mastoid air cells are clear. 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 ACT 112: Negative or not required by law. The above report was generated using voice recognition software. It may contain grammatical, syntax or spelling errors. Electronically signed by: William Velasquez M.D. 09/10/2024 11:18 AM Head CTA 09/10/24 10:07 CT angio head w con, CT angio neck with con CLINICAL HISTORY: 59 years-old Female with neuro deficit, acute stroke suspected. Acute stroke like symptoms COMPARISON STUDY: Head CT of same day and also 03/25/2023 TECHNIQUE: Following the IV administration of 120 cc of Optiray, CT angiogram of the head and neck was performed from the skull base to the vertex. Images are reviewed in the axial, sagittal, and coronal planes. 3-D MIPS images are created and assessed. IV contrast was administered without complication. All measurements were obtained according to NASCET criteria. A dose lowering technique was utilized adhering to the principles of ALARA. FINDINGS: CT BRAIN: Dictated separately. Large acute versus subacute appearing left occipital infarct noted. CT ANGIOGRAM OF THE HEAD AND NECK: Four-vessel morphology of the thoracic aortic arch. There is patency of the innominate and imaged subclavian arteries. Common carotid arteries are patent. There is mild atherosclerosis of the carotid bulbs without significant stenosis. The bilateral anterior and middle cerebral arteries are also patent. Vertebral arteries are codominant and widely patent. There is a 6 mm segment of high-grade stenosis versus occlusion involving the P2 segment of the left posterior cerebral artery, nicely seen on sagittal image 43 of series 601 with distal reconstitution. The right posterior cerebral artery is patent. There is no aneurysm, additional high-grade stenosis, or proximal branch occlusion identified. Dural sinuses appear patent. Pulmonary emphysema with biapical pleural-parenchymal scarring. No pneumothorax. Unremarkable soft tissues. No acute fracture. IMPRESSION: 1. Large acute to subacute appearing left occipital lobe infarct redemonstrated. 2. Subcentimeter high-grade stenosis versus occlusion of the left posterior cerebral artery with distal reconstitution of flow. 3. Otherwise unremarkable CTA of the head and neck. ACT 112: Negative or not required by law. The above report was generated using voice recognition software. It may contain grammatical, syntax or spelling errors. Electronically signed by: Cruzito Toth M.D. 09/10/2024 11:42 AM Neck CTA 09/10/24 10:07 CT angio head w con, CT angio neck with con CLINICAL HISTORY: 59 years-old Female with neuro deficit, acute stroke suspected. Acute stroke like symptoms COMPARISON STUDY: Head CT of same day and also 03/25/2023 TECHNIQUE: Following the IV administration of 120 cc of Optiray, CT angiogram of the head and neck was performed from the skull base to the vertex. Images are reviewed in the axial, sagittal, and coronal planes. 3-D MIPS images are created and assessed. IV contrast was administered without complication. All measurements were obtained according to NASCET criteria. A dose lowering technique was utilized adhering to the principles of ALARA. FINDINGS: CT BRAIN: Dictated separately. Large acute versus subacute appearing left occipital infarct noted. CT ANGIOGRAM OF THE HEAD AND NECK: Four-vessel morphology of the thoracic aortic arch. There is patency of the innominate and imaged subclavian arteries. Common carotid arteries are patent. There is mild atherosclerosis of the carotid bulbs without significant stenosis. The bilateral anterior and middle cerebral arteries are also patent. Vertebral arteries are codominant and widely patent. There is a 6 mm segment of high-grade stenosis versus occlusion involving the P2 segment of the left posterior cerebral artery, nicely seen on sagittal image 43 of series 601 with distal reconstitution. The right posterior cerebral artery is patent. There is no aneurysm, additional high-grade stenosis, or proximal branch occlusion identified. Dural sinuses appear patent. Pulmonary emphysema with biapical pleural-parenchymal scarring. No pneumothorax. Unremarkable soft tissues. No acute fracture. IMPRESSION: 1. Large acute to subacute appearing left occipital lobe infarct redemonstrated. 2. Subcentimeter high-grade stenosis versus occlusion of the left posterior cerebral artery with distal reconstitution of flow. 3. Otherwise unremarkable CTA of the head and neck. ACT 112: Negative or not required by law. The above report was generated using voice recognition software. It may contain grammatical, syntax or spelling errors. Electronically signed by: Cruzito Toth M.D. 09/10/2024 11:42 AM ECG Data Attestation: I personally reviewed and interpreted this ECG as follows: Rate (beats per minute): 84 Rhythm: + normal sinus ECG Intervals/blocks: + Normal AL and + Normal QT-c ECG ST segments: + Normal ST segments Additional Comments: QRS 74 MDM Narrative 0948: The patient was evaluated in room C2. A complete history and physical exam was performed Cardiac monitoring: An order was placed for continuous cardiac monitoring. The monitor shows a rate of 70 with sinus rhythm interpreted by me No code stroke called as the patient's symptoms began yesterday at 1630 and she is out of the window for TNKase. 1126: Vital signs stable. Labs unremarkable imaging shows subacute infarct of the left occipital lobe. Patient is not window for TNK. Patient be treated with aspirin and admitted to the hospitalist team. Impression & Plan CVA (cerebral vascular accident) Discharge Plan Visit Data Chief Complaint: Dizziness Stated Complaint: DIZZY, CAN'T SEE OUT OF RT EYE ED Provider: Daniel Harry Discharge Problem: CVA (cerebral vascular accident) Patient Disposition: Admitted As Inpatient Discharge Instructions Interventions: ED Discharge Assessment Last Done: 09/10/24 14:59 Prescriptions Prescriptions: No Action lorazepam 0.5 mg tablet 0.5 mg PO DAILY PRN (Reason: Panic Attack(S)) Qty: 30 0RF furosemide 20 mg tablet 20 mg PO QAM Qty: 90 3RF cetirizine 10 mg tablet 10 mg PO DAILY Qty: 90 3RF gabapentin 300 mg capsule 300 mg PO QID Qty: 90 5RF potassium chloride 20 mEq tablet extended release 20 meq PO QAM Qty: 90 3RF cholecalciferol (vitamin D3) 2,000 unit capsule 2,000 units PO QPM Patient Comments: AFTERNOON riboflavin (vitamin B2) 50 mg tablet 50 mg PO QPM triamcinolone acetonide 0.5 % cream 1 applic TOP UD PRN (Reason: Itching) Rx Instructions: apply 2-3 times TOP daily to affected areas PRN for itching ; omeprazole 20 mg tablet,delayed release (DR/EC) 20 mg PO QAM Qty: 90 3RF albuterol sulfate [ProAir HFA] 90 mcg/actuation HFA aerosol inhaler 2 puff INHALATION Q4 PRN (Reason: shortness of breath) Qty: 8.5 5RF folic acid 1 mg tablet 1 mg PO QPM B-complex with vitamin C capsule 1 cap PO QPM Patient Comments: AFTERNOON spironolactone 100 mg tablet 100 mg PO QAM Rx Instructions: TAKE 1 TABLET BY MOUTH EVERY DAY rosuvastatin 5 mg tablet 5 mg PO PM carbamazepine 200 mg tablet 100 mg PO BID Qty: 21 0RF nystatin 100,000 unit/gram cream 1 applic topical DAILY PRN (Reason: Other) Rx Instructions: Apply a small amount to corners of mouth topically at bedtime x 7 days;
--- NOTE | 2024-09-10 13:59 | XCELERA ---
[id number]
[2024-09-10] MEDS ORDERED: ALBUTEROL HFA 8 GM INHALER INH PRN (15:27)
[2024-09-10] MEDS ORDERED: LORazepam 0.5 MG TAB PO PRN (15:27)
--- NOTE | 2024-09-10 17:13 | Magnetic Resonance Report ---
Clinical History: Dizziness and right-sided tingling since yesterday morning Technique: Multiple T1 and T2-weighted magnetic resonance images were obtained of the brain without gadolinium contrast Findings: There is an acute or subacute infarct of the posteromedial left temporal lobe and the left occipital lobe, measuring approximately 7.5 x 3 cm. This area demonstrates restricted diffusion and increased T2 signal intensity. There is a 2 mm focus of restricted diffusion in the right cerebellar hemisphere, concerning for an additional infarct There is mild cerebral atrophy, within expected limits for the patient's age. There are small areas of increased T2 signal intensity within the periventricular white matter of the cerebral hemispheres bilaterally. This is most likely due to chronic small vessel ischemic disease. No definite mass lesion is seen on this noncontrast study. There is no intracranial hemorrhage or other fluid collection. No midline shift or other form of herniation is seen. There is no hydrocephalus. Normal flow-voids are seen within the arteries of the [id number]. The orbits and paranasal sinuses appear normal. The mastoid air cells appear clear. Impression: 1. Acute/subacute infarct of the left temporal and left occipital lobes, moderate to large in size 2. Small acute infarct of the right cerebellum 3. Mild chronic small vessel ischemic disease ACT 112: Positive. There are findings on this exam that require communication between the performing entity and the patient following Patient Test Result Information Act ([place] ACT 112) guidelines. Electronically signed by Baltazar Ivory 09-10-2024 5:13 PM
[2024-09-10] MEDS: GABAPENTIN 300 MG CAP PO SCH (17:52)
[2024-09-10] MEDS: ROSUVASTATIN CALCIUM 5 MG TAB PO SCH (20:16)
[2024-09-11] MEDS: CETIRIZINE HCL 10 MG TABLET PO SCH (08:43)
[2024-09-11] MEDS: SPIRONOLACTONE 100 MG TAB PO SCH (08:43)
[2024-09-11] MEDS: FUROSEMIDE 20 MG TAB PO SCH (08:43)
[2024-09-11] MEDS: ASPIRIN 81 MG ECTAB PO SCH (08:43)
[2024-09-11] MEDS: CLOPIDOGREL BISULFATE 75 MG TAB PO SCH (08:43)
[2024-09-11] MEDS: PANTOprazole 40 MG TAB PO SCH (08:43)
[2024-09-11] MEDS: POTASSIUM CHLORIDE CRTAB 20 MEQ TABCR PO SCH (08:45)
[2024-09-11 08:58] LABS: Basophils # (auto) 0.05 K/uL (0.00-0.20); Basophils % (auto) 0.5 %; Eosinophils # (auto) 0.33 K/uL (0.00-0.50); Eosinophils % (auto) 3.4 %; Hematocrit (blood only) 40.6 % (37.0-47.0); Hemoglobin 13.9 g/dl (12.0-16.0); Immature Granulocytes # (auto) 0.04 K/uL (0.01-0.20); Immature Granulocytes % (auto) 0.4 %; Lymphocytes # (auto) 1.63 K/uL (1.20-3.40); Lymphocytes % (auto) 16.9 %; Mean Corpuscular Hemoglobin 35.1 pg (25.0-34.0); Mean Corpuscular Hgb Conc 34.2 g/dL (32.0-36.0); Mean Corpuscular Volume 102.5 fL (80.0-100.0); Mean Platelet Volume 8.6 fL (9.4-12.4); Monocytes # (auto) 0.92 K/uL (0.11-0.59); Monocytes % (auto) 9.5 %; Neutrophils % (auto) 69.3 %; Platelet Count 337 K/uL (130-400); RDW Coefficient of Variation 17.8 % (11.5-14.5); Red Blood Count 3.96 M/uL (4.20-5.40); White Blood Count 9.67 K/ul (4.8-10.8)
--- NOTE | 2024-09-11 09:00 | Neurology Consultation ---
Date of Consultation September 11, 2024 Assessment & Plan (1) CVA (cerebral vascular accident): History of Present Illness Attending Physician: Isabel Marc MD History of Present Illness S: pt feeling well this morning. no face numbness. still slight rt peripheral vision blurring. no weakness. mri brain noted for left WOODYARD CRANE OPERATOR distribution ischemic stroke and small tiny rt cerebellum stroke. CTA noted for left WO[employer]ARD CRANE OPERATOR high grade stenosis. pt doing well. chart reviewed. pt decided to stop smoking now. Admission HPI: Morenita is a 59-year-old female with PMH of anxiety, alcoholic hepatitis, esophageal varices, gastric intestinal metaplasia, and tobacco use. She presented on 09/10 for right eye vision deficits. She reports that yesterday, around 1630, her vision suddenly became "white" in both eyes. This lasted for approximately 2 minutes, and then after this she was missing vision in the lateral corner of her right eye. She still having blurry vision in her right eye and cannot see out of the corner of her right eye. No prior history of strokes. Patient's (Philippe) at bedside reports no slurred speech, facial droop, or unilateral deficits in the upper/lower extremities. Her only other symptom has been a pounding headache that comes in waves. It is mainly located bilaterally across the forehead. She does have a history of headaches, but reports this 1 was particularly bad. He rates it 8/10 at present. She took her regular gabapentin this morning, as well as 2 Advil for her headache. No recent change in medications. Additionally, she does report she has intermittent chest palpitations that lead to SOB. She normally takes a deep breath and rests to help them subside. No history of A-fib to her knowledge. Patient is a current everyday tobacco cigarette smoker; 1 PPD. She declines a nicotine patch on admission. She denies any recent alcohol use. Patient denies any medications to allergies; reports she is okay to take aspirin. Patient reports that she does not wear glasses or contacts at baseline. Patient's vitals are stable at time of admission. Allergies Allergy/AdvReac Type Severity Reaction Status Date / Time tramadol AdvReac Mild Nausea Verified 05/28/24 09:22 Home Medications Medication Instructions Recorded Confirmed Type triamcinolone acetonide 0.5 % 1 applic topical UD PRN Itching 12/22/18 09/10/24 History topical cream cholecalciferol (vitamin D3) 50 2,000 units PO QPM 04/07/19 09/10/24 History mcg (2,000 unit) capsule riboflavin (vitamin B2) 50 mg 50 mg PO QPM 04/07/19 09/10/24 History tablet folic acid 1 mg tablet 1 mg PO QPM 08/02/20 09/10/24 History B-complex with vitamin C 1 cap PO QPM 10/13/21 09/10/24 History lorazepam 0.5 mg tablet 0.5 mg PO DAILY PRN Panic 01/03/22 09/10/24 Rx Attack(S) #30 tabs furosemide 20 mg tablet 20 mg PO QAM #90 tabs 06/19/22 09/10/24 Rx cetirizine 10 mg tablet 10 mg PO DAILY #90 tabs 11/05/22 09/10/24 Rx gabapentin 300 mg capsule 300 mg PO QID #90 caps 02/15/23 09/10/24 Rx albuterol sulfate 90 mcg/actuation 2 puff inhalation Q4 PRN shortness 02/25/23 09/10/24 Rx aerosol inhaler (ProAir HFA) of breath #8.5 grams omeprazole 20 mg tablet,delayed 20 mg PO QAM #90 tabs 02/25/23 09/10/24 Rx release rosuvastatin 5 mg tablet 5 mg PO PM 03/25/23 09/10/24 History spironolactone 100 mg tablet 100 mg PO QAM 03/25/23 09/10/24 History potassium chloride 20 mEq 20 meq PO QAM #90 tabs 05/28/23 09/10/24 Rx tablet,extended release carbamazepine 200 mg tablet 100 mg (1/2 x 200 mg) PO BID #21 08/19/23 09/10/24 Rx tabs nystatin 100,000 unit/gram topical 1 applic topical DAILY PRN Other 09/10/24 09/10/24 History cream Patient History Medical History Numbness and tingling of both legs Acid reflux Vitamin D deficiency History of alcoholic hepatitis History of alcoholism Cirrhosis History of colon polyps Coronary artery calcification Hx of Lyme disease ~2021 treated Cough intermittent, reason for inhaler; uses ~1-2 times per week History of panic attacks Seasonal allergies Hx of ascites Anxiety Neuropathy reason for carbamazepine Tobacco abuse GERD (gastroesophageal reflux disease) Surgical History History of esophagogastroduodenoscopy (EGD) History of surgery on wrist tendonitis History of endoscopy History of colonoscopy History of abdominal paracentesis X 2 History of tooth extraction wisdom teeth Family History Mother Family history of diabetes mellitus Cardiac disorder Hypertension Thyroid disease Coronary heart disease Father Myocardial infarction Stroke Grandmother Lung cancer Other No family history of adverse response to anesthesia Denies family history of Ovarian cancer Prostate cancer Breast cancer Colorectal cancer Social History Smoking Status: Former smoker Tobacco Type: Cigarettes Age Started Using Tobacco: 27; packs per day: 0.5; Cigarettes Per Day: ~5 per day- advised; Second Hand Exposure: No; Do You Dip or Chew Tobacco: No; Tobacco Cessation Education Requested by Patient: No Hx Alcohol Use: No Hx Substance Use: No Preferred Language: [place] Communication Ability: Effective Hearing Ability: Normal Hydraulic Billet Maker Required: No Beliefs That Will Affect Care: None marital status: Current Living Situation: Spouse current occupational status: employed current occupation: [employer]. Other Information That Helps Us Care for You: No Feels Safe at Home: Yes Safety Concerns: Feels Safe At This Time Childhood Exposure to Second-Hand Smoke: No Diet: regular caffeine: No Dental Care, Regularly: No Physical Activity Frequency: Does not Exercise Seatbelt Use: always Sunscreen Use: Yes Assistive Devices: None Review of Systems Review of Systems: All systems reviewed & are unremarkable except as noted in Subjective Constitutional: as per Subjective / HPI Eyes: as per Subjective / HPI Ear, Nose, Mouth, Throat: as per Subjective / HPI Respiratory: as per Subjective / HPI Cardiovascular: as per Subjective / HPI Gastrointestinal: as per Subjective / HPI Musculoskeletal: as per Subjective / HPI Integumentary: as per Subjective / HPI Neurologic: as per Subjective / HPI Psychiatric: as per Subjective / HPI Endocrine: as per Subjective / HPI Hematologic / Lymphatic: as per Subjective / HPI Allergy / Immunological: as per Subjective / HPI Exam (Neuro) Physical Exam: HEENT: normocephalic Neuro: Mental: AOx4, fluent speech, normal comprehension, no apraxia, no L/R confusion, no neglect CN: PERRL, Full EOM, symmetric face, rt homonymous lower quadranopsia noted. midline T/U/P, 5/5 SCM/traps. Motor: No abnormal movements, normal tone and bulk, 5/5 t/o bilaterally Sens: intact to touch b/l grossly Coord: intact FNT b/l DTR: 2+ sym b/l Impression: 59 yo female with acute ischemic stroke left WO[employer]ARD CRANE OPERATOR distribution likely from the high grade stenosis of left WOODYARD CRANE OPERATOR vessel. pt with minimal deficits other than rt lower homonymous quadranopsia. stable. Recommendations: 1. Standard stroke work up as planned 2. antiplatelet therapy: 90 days of DAPT for this pt. * DAPT (dual antiplatelet therapy): start for pts with ABCD2 score 4 or higher. Initial loading dose with ASA 325mg and Plavix 300mg (if pt has not been started), then ASA 81mg daily and Plavix 75mg daily. Continue DAPT for 21 days if found small vessel disease only or continue for 90 days if found to have intracranial large artery atherosclerosis. After that, can continue single antiplatelet therapy (either ASA or Plavix). 3. Images: TTE with bubble negative 4. Permissive Hypertension for next 24 h rs. Keep SBP goal range less than 220. Avoid hypotension. Do not stop beta-joel if on it. 6. Long-term SBP goal less than 130. 7. Plenty of hydration including IV flui d if possible (use isotonic solution) next 1-2 days. Avoid hypovolemia and hypotension. 8. Initiate DVT prevention therapy. 9. Avoid hypoglycemia, serum glucose goa l during hospitalization: 140-180. 10. Long-term HgA1c goal less than 7. 11. Start statin if not on it and no abs olute contraindication, long-term LDL goal less than 70. 12. Head of bed up 30 degrees if possibl e. 13. Stroke education by nursing and appr opriate staff. 14. Telemetry monitoring. Consider vermin exterminator cardiac monitoring, i.e. MCOT (mobile cardiac outpatient telemetry) or ICM (insertable slot tag inserter, e.g. LINQ), if never had fdc cardiac monitoring done previously. And if found to have atrial flutter or fibrillation, should consider anticoagulation therapy if no contraindication. 15. Fall precaution and aspiration preca ution. 16. Consult physical and occupational th erapy evaluation. pt decided to stop smoking. routine stroke care as now. otherwise not much to add as pt is stable with minimal deficits. please call again if new question. Chart reviewed I have spent more than 50% educating patient about potential diagnosis and neurological evaluation and coordinating care with patient's treatment team. Total time spent (including chart review and coordination of care): 60 min (this includes chart review). Results & Data Vital Signs (Past 12 Hours) Vital Signs Temp Pulse Pulse Resp BP Pulse Ox O2 Del Method 09/11/24 07:47 36.6 C 82 16 126/80 95 Nasal Cannula 09/11/24 04:22 36.9 C 87 16 101/61 92 Nasal Cannula 09/10/24 23:00 108/69 09/10/24 22:43 36.6 C 89 16 94/64 L 95 Room Air 09/10/24 22:06 85 O2 Flow Rate 09/11/24 07:47 09/11/24 04:22 2 09/10/24 23:00 09/10/24 22:43 09/10/24 22:06 PG Care Time/CCT Total # of Minutes Spent Total Time Spent with Patient: Total time spent is greater than 50% in coordination of care (as documented) at patient's floor/unit and/or counseling patient: Coding Level of Care Code 40822 IN/OBS CONSULT LVL 4,60M Diagnoses Cerebrovascular accident (CVA) due to stenosis of left posterior cerebral artery I63.532 CVA mechanism: stenosis Precerebral and cerebral artery: posterior cerebral artery Laterality of affected vessel: left (1) CVA (cerebral vascular accident) CVA mechanism: stenosis Precerebral and cerebral artery: posterior cerebral artery Laterality of affected vessel: left Qualified Code(s): I63.532 - Cerebral infarction due to unspecified occlusion or stenosis of left posterior cerebral artery
[2024-09-11 09:15] LABS: BUN Creatinine Ratio 11.7 (10-20); Calcium 8.4 mg/dl (8.6-10.3); Chol HDL Ratio 2.7 (0-5); Creatinine Clr Calc Pharmacy 84.6 ml/min; Potassium 4.2 mmol/L (3.5-5.1)
[2024-09-11 10:23] LABS: Estimated Average Glucose 105 mg/dl; Hemoglobin A1C 5.3 % (4.5-5.6)
--- NOTE | 2024-09-11 10:54 | Hospitalist Progress Note ---
Date of Service September 11, 2024 Assessment & Plan (1) CVA (cerebral vascular accident): (2) Hemianopia of right eye: (3) Cirrhosis: Plan This pt is a 59-year-old female with a h/o smoking, HLD, GERD, peripheral neuropathy, cirrhosis, anxiety, here with right visual field loss, found to have acute left occipital and temporal as well as right cerebellar CVA. #Subacute left occipital, temporal lobe and right cerebellar ischemic CVA- patient was not a TNKase candidate on arrival due to being outside time window (over 24 hrs of symptoms). Head CT on arrival revealed a recent subacute infarction at the left occipital lobe. CTA Head and neck with left CORE CHECKER occlusion with reconstitution of flow distally, otherwise ok. Brain MRI confirms moderate- large left posteromedial temporal and occipital lobe CVA as well as small right cerebellar CVA. ECHO with bubble negative. No arrhythmias on tele thus far. HgbA1C normal. No h/o HTN-is on diuretics for cirrhosis. Smoking is biggest risk factor. Lipid panel with TChol 140, LDL 67. Appreciate Neuro consult -continued stay on tele for further observation for post-CVA complications -arrange outpt 30 day cardiac event monitor to look for occult Afib/flutter -increase Crestor to 20mg po daily -start DAPT with ASA,Plavix x 90 days, then Plavix monotherapy -permissive HTN-hold diuretics and give another 1L of NS at 100mL/hr to bring BP up -continue neurochecks, stroke scales -PT/OT evaluations appreciated -f/u with Ophtho after discharge for visual field testing. Advised no driving until cleared by Ophtho #Headache- 2/2 acute CVA -add tylenol prn pain -could give tramadol if needed #Liver cirrhosis-compensated, follows with [facility] annually. LFTs only with mildly elevated Alk phos -hold furosemide, spironolactone #Current everyday tobacco cigarette smoker-smokes 1 PPD; declined nicotine patch. Is committed to quitting after discharge -encourage smoking cessation #GERD/intestinal metaplasiacontinue omeprazole #Peripheral neuropathycontinue gabapentin #Anxiety disorder-no acute issues -continue ativan prn #Allergies-no acute issues -continue zyrtec daily DVT Proph-SCDs, DAPT Dispo-continued stay on PCU, likely dc to home 09/12 Admission and Anticipated Discharge Date Admission Date: September 10, 2024 Subjective Still with vision loss on right. Has some imbalance with walking due to vision issues. C/o a bad headache ongoing since before admission. No weakness or numbness anywhere. No CP, SOB, abd pain, trouble with bowels or bladder. Tele with NSR, rates 70-80s Physical Exam Constitutional: WD/WN, vitals as above Eyes: PERRL, conjunctivae normal, anicteric sclerae ENMT: external ear and nose normal, oropharynx normal Neck: trachea midline, no thyromegaly Respiratory: normal respiratory effort, lungs clear to auscultation Cardiovascular: RRR, no murmur, no edema Chest (Breasts): Chest: normal inspection of chest Gastrointestinal (Abdomen): normal bowel sounds, soft, nontender, no hepatosplenomegaly Musculoskeletal: Extremities: extremities normal to inspection; no cyanosis and no clubbing Skin: no rashes, warm and dry Neurologic: moves all extremities and awake; no focal motor deficits Cranial Nerves: sense of smell intact, PERRL, normal accommodation, EOM intact bilaterally (visual field deficit right hemianopsia), normal facial strength, tongue midline, normal gag reflex, normal hearing, able to rotate head bilaterally, able to elevate shoulders bilaterally, no nystagmus and symmetric palate elevation Psychiatric: A+Ox3, euthymic affect Lymphatic: no lymphedema Results & Data Results & Data Vital Signs (Past 12 Hours) Vital Signs Temp Pulse Pulse Resp BP Pulse Ox O2 Del Method 09/11/24 08:00 80 09/11/24 07:47 36.6 C 82 16 126/80 95 Nasal Cannula 09/11/24 04:22 36.9 C 87 16 101/61 92 Nasal Cannula 09/10/24 23:00 108/69 O2 Flow Rate 09/11/24 08:00 09/11/24 07:47 09/11/24 04:22 2 09/10/24 23:00 Laboratory Results CBC, BMP, HgbA1C, lipid panel reviewed Diagnostic Findings Brain MRI reviewed PG Care Time/CCT Total # of Minutes Spent Total Time Spent with Patient: Total time spent is greater than 50% in coordination of care (as documented) at patient's floor/unit and/or counseling patient: Coding Level of Care Code 11008 SUB INP/OBS CARE 3/50MIN Diagnoses Cerebrovascular accident (CVA) due to stenosis of left posterior cerebral artery I63.532 CVA mechanism: stenosis Laterality of affected vessel: left Precerebral and cerebral artery: posterior cerebral artery Hemianopia of right eye H53.461 Cirrhosis K74.60 (1) CVA (cerebral vascular accident) CVA mechanism: stenosis Laterality of affected vessel: left Precerebral and cerebral artery: posterior cerebral artery Qualified Code(s): I63.532 - Cerebral infarction due to unspecified occlusion or stenosis of left posterior cerebral artery
[2024-09-11] MEDS: ACETAMINOPHEN 325 MG TAB PO PRN (11:06)
--- NOTE | 2024-09-11 11:23 | Pharmacy Report ---
- Date of Service September 11, 2024 - Pharmacy CVA/TIA Medication Review Medications to Prevent Stroke handout has been added to the patients discharge packet. Antiplatelet(s) * Aspirin 81 mg PO daily * Clopidogrel 75 mg PO daily * Per Neuro, continue DAPT (dual antiplatelet therapy) for 21 days if found sma ll vessel disease only or continue for 90 days if found to have intracranial large artery atherosclerosis. After that, can continue single antiplatelet therapy (either ASA or Plavix). Cholesterol * High intensity statin: rosuvastatin 20 mg daily DVT Prophylaxis * SCD knee Therapeutic Anticoagulation * No history of Afib/Aflutter noted Type 2 Diabetes * Patient does not have T2DM, A1c = 5.3%
[2024-09-11] MEDS: SODIUM CHLORIDE 0.9% 1,000 ML IV SCH (11:52)
[2024-09-11] MEDS: ROSUVASTATIN CALCIUM 20 MG TAB PO SCH (19:54)
[2024-09-11] MEDS: traMADol HCL 50 MG TABLET PO STA (20:16)
[2024-09-11] MEDS: KETOROLAC TROMETHAMINE 15 MG/ML VIAL IV ONE (20:19)
[2024-09-12 06:49] LABS: Basophils # (auto) 0.04 K/uL (0.00-0.20); Basophils % (auto) 0.5 %; Eosinophils # (auto) 0.24 K/uL (0.00-0.50); Eosinophils % (auto) 3.1 %; Hematocrit (blood only) 39.5 % (37.0-47.0); Hemoglobin 13.5 g/dl (12.0-16.0); Immature Granulocytes # (auto) 0.03 K/uL (0.01-0.20); Immature Granulocytes % (auto) 0.4 %; Lymphocytes # (auto) 1.72 K/uL (1.20-3.40); Lymphocytes % (auto) 22.5 %; Mean Corpuscular Hemoglobin 34.9 pg (25.0-34.0); Mean Corpuscular Hgb Conc 34.2 g/dL (32.0-36.0); Mean Corpuscular Volume 102.1 fL (80.0-100.0); Mean Platelet Volume 8.7 fL (9.4-12.4); Monocytes # (auto) 0.81 K/uL (0.11-0.59); Monocytes % (auto) 10.6 %; Neutrophils # (auto) 4.79 K/uL (1.40-6.50); Neutrophils % (auto) 62.9 %; Platelet Count 319 K/uL (130-400); RDW Coefficient of Variation 17.2 % (11.5-14.5); RDW Standard Deviation 65.1 fL (36.4-46.3); Red Blood Count 3.87 M/uL (4.20-5.40); White Blood Count 7.63 K/ul (4.8-10.8)
[2024-09-12 07:10] LABS: BUN Creatinine Ratio 18.2 (10-20); Calcium 8.4 mg/dl (8.6-10.3); Creatinine Clr Calc Pharmacy 92.3 ml/min; Potassium 4.1 mmol/L (3.5-5.1)
[2024-09-12 11:42] VITALS: RESP 17; TEMP 98.2; O2SAT 93
--- NOTE | 2024-09-12 11:45 | Discharge Summary ---
Discharge Summary Date of Service September 12, 2024 Principal Dx & Hospital Course #1 = Principal Diagnosis (1) CVA (cerebral vascular accident): (2) Hemianopia of right eye: (3) Cirrhosis: Plan This pt is a 59-year-old female with a h/o smoking, HLD, GERD, peripheral neuropathy, cirrhosis, anxiety, here with right visual field loss, found to have acute left occipital and temporal as well as right cerebellar CVA. #Subacute left occipital, temporal lobe and right cerebellar ischemic CVA- patient was not a TNKase candidate on arrival due to being outside time window (over 24 hrs of symptoms). Head CT on arrival revealed a recent subacute infarction at the left occipital lobe. 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 Brain MRI confirms moderate-large left posteromedial temporal and occipital lobe CVA as well as small right cerebellar CVA. ECHO with bubble negative. No arrhythmias on tele while monitored for 48 hours. HgbA1C normal. No h/o HTN-is on diuretics for cirrhosis. Smoking is biggest risk factor. Lipid panel with TChol 140, LDL 67. Appreciate Neuro consult -arrange outpt 30 day cardiac event monitor to look for occult Afib/flutter- asked nurse navigator to arrange this -increased Crestor to 20mg po daily for high intensity therapy -started DAPT with ASA,Plavix x 90 days, then Plavix monotherapy after that -permissive HTN initially and held diuretics, gave 1 L normal saline to bring up blood pressure-this improved. Okay to resume Lasix and spironolactone after discharge -PT/OT evaluations appreciated-had some imbalance due to visual field deficit but stable for discharge to home-no rehab needed -f/u with Ophtho after discharge for visual field testing. Advised no driving until cleared by Ophtho -Gave precautions to return for any future stroke symptoms #Headache- 2/2 acute CVA, improved with Tylenol and did receive 1 dose of Toradol but would not give any further NSAIDs given dual antiplatelet therapy and risk of stroke -Continue tylenol prn pain -Gave small supply of hydrocodone as needed severe pain at home #Liver cirrhosis-compensated, follows with [facility] annually. LFTs only with mildly elevated Alk phos -hold furosemide, spironolactone #Current everyday tobacco cigarette smoker-smokes 1 PPD; declined nicotine patch. Is committed to quitting after discharge -encouraged smoking cessation #GERD/intestinal metaplasiacontinue PPI but changed to Protonix after discharge as omeprazole interacts with Plavix #Peripheral neuropathycontinue gabapentin #Anxiety disorder-no acute issues -continue ativan prn #Allergies-no acute issues -continue zyrtec daily DVT Proph-SCDs, DAPT Dispo-medically stable to dc to home 09/12 Notes For Next Care Provider Follow-up on 30-day cardiac event monitor after discharge Needs ophthalmology follow-up for visual field testing No driving until cleared by ophthalmology and/your PCP Medication Changes From Visit See list Admission HPI Per Admitting Provider Morenita is a 59-year-old female with PMH of anxiety, alcoholic hepatitis, esophageal varices, gastric intestinal metaplasia, and tobacco use. She presented on 09/10 for right eye vision deficits. She reports that yesterday, around 1630, her vision suddenly became "white" in both eyes. This lasted for approximately 2 minutes, and then after this she was missing vision in the lateral corner of her right eye. She still having blurry vision in her right eye and cannot see out of the corner of her right eye. No prior history of strokes. Patient's (Philippe) at bedside reports no slurred speech, facial droop, or unilateral deficits in the upper/lower extremities. Her only other symptom has been a pounding headache that comes in waves. It is mainly located bilaterally across the forehead. She does have a history of headaches, but reports this 1 was particularly bad. He rates it 8/10 at present. She took her regular gabapentin this morning, as well as 2 Advil for her headache. No recent change in medications. Additionally, she does report she has intermittent chest palpitations that lead to SOB. She normally takes a deep breath and rests to help them subside. No history of A-fib to her knowledge. Patient is a current everyday tobacco cigarette smoker; 1 PPD. She declines a nicotine patch on admission. She denies any recent alcohol use. Patient denies any medications to allergies; reports she is okay to take aspirin. Patient reports that she does not wear glasses or contacts at baseline. Patient's vitals are stable at time of admission. ED course: Aspirin 324 mg p.o. ROS: Patient endorses right eye vision deficits, headache, dizziness, feeling off balance, intermittent chest palpitations/SOB, loose stool, and neuropathy in the legs. Patient denies fever, chills, lightheadedness, falls, syncope, photophobia, neck pain, tinnitus, chest pain, SOB at rest, pleuritic CP, cough, abdominal pain, N/V/D, and changes in urinary/bowel habits. Discharge Exam Constitutional WD/WN, vitals as above Neck trachea midline, no thyromegaly Respiratory normal respiratory effort, lungs clear to auscultation Cardiovascular RRR, no murmur, no edema Chest (Breasts) Chest: normal inspection of chest Gastrointestinal (Abdomen) normal bowel sounds, soft, nontender, no hepatosplenomegaly Musculoskeletal Extremities: extremities normal to inspection; no cyanosis and no clubbing Skin no rashes, warm and dry Neurologic moves all extremities and awake; no focal motor deficits Psychiatric A+Ox3, euthymic affect Lymphatic no lymphedema Discharge Plan Discharge Items Patient Disposition: Home - Self-Care Reason For Visit: LEFT OCCIPITAL CVA Discharge Diagnosis: Acute ischemic stroke with visual field loss Headache secondary to stroke Condition on Discharge: Good Activity: As commented below Lifting: No more than 5 pounds Bathing: No limitations Exercise/Sports: As tolerated Exercise Comment: No heavy exertion, remain out of work x 2 weeks Driving/Machine Use: No driving until cleared by poultry slaughterer Weightbearing: Full weightbearing Non-emergency contact: Primary Care Provider and Half Sole Fitter Call non-emergency contact if: you have any medication questions and your symptoms worsen Follow-up/Referrals: Danish Corbin, [Primary Care Provider] - (Follow-up within 1 to 2 weeks.) Diet: Heart Healthy Add Attending Provider Instructions: You were admitted with vision loss that was found to be from a stroke. Stroke is most likely caused by a history of smoking, but you will also need to wear a heart monitor after discharge to look for irregular heart rhythms that can cause strokes. This will be sent to you in the mail. You were started on aspirin and Plavix as blood thinners for 90 days, and then you can remain on Plavix daily after that. Your rosuvastatin cholesterol medicine was increased to 20 mg daily. You can take Tylenol or hydrocodone as needed for your headache. Due to an interaction with omeprazole and Plavix, your omeprazole will be replaced with Protonix for your acid reflux. Please follow-up with an poultry slaughterer (an eye doctor) within the next few weeks for formal visual field testing. Please refrain from driving until cleared to return to driving by the eye doctor. As we discussed, quitting smoking is the most important thing that you can do! Risk Factors for Stroke: You can reduce your chances of stroke by working with your medical provider to adopt a healthy lifestyle. Some specific ways to lower your chance of stroke are: * If you are a smoker, now is the time to stop smoking cigarettes * If you are diabetic, improve the control of your blood sugars * Avoid excessive amounts of alcohol * Control high blood pressure * Lose weight if you are overweight * Be sure to lead an active lifestyle * Eat a healthy diet low in salt, cholesterol and fat You should know about other risk factors for stroke that you are unable to control. These include: * Age 55 years or older * Male gender * Certain racial groups: , or / * Family History of Stroke, Mini stroke or Heart Attack * Sickle Cell Disease Follow Up: It is important for you to keep your follow up appointments with your medical provider. Who to Call and When: Medical Emergencies: Call 911 immediately if you experience any of the followin g warning signs and symptoms of Stroke: * Sudden numbness or weakness of the face, arm or leg, especially on one side of the body * Sudden confusion, trouble speaking or understanding * Sudden trouble seeing in one or both eyes * Sudden trouble walking, dizziness, loss of balance or coordination * Sudden severe headache with no cause Do not delay calling 911 if you experience any warning signs or symptoms of a stroke. Delay in seeking medical attention may affect what treatments can be given to you. . Pending Studies at Discharge: No Stand-Alone Forms: [facility], Work/School Release, Smoking Cessation, Medications to Prevent Stroke Medications and DC Order Prescriptions: New clopidogrel 75 mg Tablet 75 mg PO QAM Qty: 30 0RF rosuvastatin 20 mg Tablet 20 mg PO PM Qty: 30 0RF pantoprazole 40 mg Tablet,Delayed Release (Dr/Ec) 40 mg PO QAM Qty: 30 0RF hydrocodone-acetaminophen 5-325 mg tablet 1 tab PO Q8H PRN (Reason: pain (scale score 7-10)) Qty: 10 0RF aspirin 81 mg Tablet,Delayed Release (Dr/Ec) 81 mg PO QAM Qty: 30 0RF Rx Instructions: [id number] acetaminophen 325 mg Tablet 650 mg PO Q4H PRN (Reason: headache or pain) Qty: 30 0RF Continued lorazepam 0.5 mg tablet 0.5 mg PO DAILY PRN (Reason: Panic Attack(S)) Qty: 30 0RF furosemide 20 mg tablet 20 mg PO QAM Qty: 90 3RF cetirizine 10 mg tablet 10 mg PO DAILY Qty: 90 3RF gabapentin 300 mg capsule 300 mg PO QID Qty: 90 5RF potassium chloride 20 mEq tablet extended release 20 meq PO QAM Qty: 90 3RF cholecalciferol (vitamin D3) 2,000 unit capsule 2,000 units PO QPM Patient Comments: AFTERNOON riboflavin (vitamin B2) 50 mg tablet 50 mg PO QPM triamcinolone acetonide 0.5 % cream 1 applic TOP UD PRN (Reason: Itching) Rx Instructions: apply 2-3 times TOP daily to affected areas PRN for itching ; albuterol sulfate [ProAir HFA] 90 mcg/actuation HFA aerosol inhaler 2 puff INHALATION Q4 PRN (Reason: shortness of breath) Qty: 8.5 5RF folic acid 1 mg tablet 1 mg PO QPM B-complex with vitamin C capsule 1 cap PO QPM Patient Comments: AFTERNOON spironolactone 100 mg tablet 100 mg PO QAM Rx Instructions: TAKE 1 TABLET BY MOUTH EVERY DAY carbamazepine 200 mg tablet 100 mg PO BID Qty: 21 0RF nystatin 100,000 unit/gram cream 1 applic topical DAILY PRN (Reason: Other) Rx Instructions: Apply a small amount to corners of mouth topically at bedtime x 7 days; Discontinued omeprazole 20 mg tablet,delayed release (DR/EC) 20 mg PO QAM Qty: 90 3RF rosuvastatin 5 mg tablet 5 mg PO PM Discharge Orders: Discharge Order (Routine); Ordered 09/12/24 Ordered By: Isabel Marc Admission Data Admit Date/Time: 09/10/24 13:20 Attending Provider: Isabel Marc Admit Provider: Dale Doty Primary Care Provider: Danish Corbin Other Providers: Dale Doty; Paramjit Tejeda Hospital Stay Data Consultations 09/10/24 11:26 ED Decision to Admit Stat 09/10/24 12:40 Consult Neurology Routine Diagnostic Imagining Performed 09/10/24 10:07 CT angio head w con Stat CT angio neck with con Stat CT head/brain wo con Stat 09/10/24 12:40 MR brain wo con Urgent Echocardiogram Pending Results Patient Have Any Pending Studies at Discharge: No Discharge Instructions Given to Patient (Per Discharging Provider) You were admitted with vision loss that was found to be from a stroke. Stroke is most likely caused by a history of smoking, but you will also need to wear a heart monitor after discharge to look for irregular heart rhythms that can cause strokes. This will be sent to you in the mail. You were started on aspirin and Plavix as blood thinners for 90 days, and then you can remain on Plavix daily after that. Your rosuvastatin cholesterol medicine was increased to 20 mg daily. You can take Tylenol or hydrocodone as needed for your headache. Due to an interaction with omeprazole and Plavix, your omeprazole will be replaced with Protonix for your acid reflux. Please follow-up with an poultry slaughterer (an eye doctor) within the next few weeks for formal visual field testing. Please refrain from driving until c leared to return to driving by the eye doctor. As we discussed, quitting smoking is the most important thing that you can do! Risk Factors for Stroke: You can reduce your chances of stroke by working with your medical provider to adopt a healthy lifestyle. Some specific ways to lower your chance of stroke are: * If you are a smoker, now is the time to stop smoking cigarettes * If you are diabetic, improve the control of your blood sugars * Avoid excessive amounts of alcohol * Control high blood pressure * Lose weight if you are overweight * Be sure to lead an active lifestyle * Eat a healthy diet low in salt, cholesterol and fat You should know about other risk factors for stroke that you are unable to control. These include: * Age 55 years or older * Male gender * Certain racial groups: , or / * Family History of Stroke, Mini stroke or Heart Attack * Sickle Cell Disease Follow Up: It is important for you to keep your follow up appointments with your medical provider. Who to Call and When: Medical Emergencies: Call 911 immediately if you experience any of the following warning signs and symptoms of Stroke: * Sudden numbness or weakness of the face, arm or leg, especially on one side of the body * Sudden confusion, trouble speaking or understanding * Sudden trouble seeing in one or both eyes * Sudden trouble walking, dizziness, loss of balance or coordination * Sudden severe headache with no cause Do not delay calling 911 if you experience any warning signs or symptoms of a stroke. Delay in seeking medical attention may affect what treatments can be given to you. . Total Time Total Time Spent Total Time Spent (In Minutes): 40-minute Total Time Includes: Examination of the Patient, Discharge Planning and Medication Reconciliation Coding Level of Care Code 38032 INP/OBS DISCH >30 MIN Diagnoses Cerebrovascular accident (CVA) due to stenosis of left posterior cerebral artery I63.532 CVA mechanism: stenosis Laterality of affected vessel: left Precerebral and cerebral artery: posterior cerebral artery Hemianopia of right eye H53.461 Cirrhosis K74.60
[2024-09-12 11:58] VITALS: BP 128/77; PULSE 70
[2024-09-12] MEDS: STROKE PATIENT DISCHARGE STA (12:02)
== END 2024-09-12 12:51 | disposition home or self-care (01) | DRG 66 ==
LOC: ED 09:28 → 2S 13:20 → SUATTDRO 13:20 → 2S 14:59